=== PATIENT | male | born 1970 | race Caucasian/White ===

== ENCOUNTER 2017-10-20 18:03 | Emergency (ER) | payer MEDICARE, SELFPAY ==
[2017-10-20 18:09] VITALS: BP 169/84; PULSE 88; RESP 16; TEMP 36.9; O2SAT 96
--- NOTE | 2017-10-20 18:23 | ED.GENADUL_ITS ---
Disposition Clinical Impression: Chronic ulcer of leg, Lymphedema of right lower extremity Disposition: HOME Condition: Stable Instructions: Lymphedema (ED), Venous Insufficiency (GEN) Additional Instructions: Keep wound clean, dry and covered. Rest and elevate right lower extremity is much as possible. Keep your sugars under good control. Wash area with soap and water. If you develop any fever, increased pain, redness or swelling, start the antibiotics immediately. You should receive a call from care management regarding follow-up with wound care. Follow-up with your primary care doctor within the next week. Return to the emergency department with any worsening or new concerning symptoms. 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 He denies any worsening pain. He denies any acute worsening of edema and states this has been progressive over the past 2 months. He denies fever. Patient states his sugars have been at baseline around 250-300. He has multiple ulcers in various stages on the right lower extremity which appear consistent with likely resulting from his lymphedema/venous stasis. There is mild surrounding erythema of the lower leg. Vascular intact. As he denies any acute worsening of edema and denies pain and is already on Eliquis, I do not see any indication for repeat ultrasound. He is mainly concerned about the nuisance involved with the oozing. Patient was treated with doxycycline and Bactrim recently for right leg cellulitis. Considering his history, will give prescription for antibiotics in case of an early developing cellulitis. He states his 2 recent leg infections were worse than the current presentation and he states he feels his leg is not infected at this time. Patient was instructed to start antibiotics at any signs of increased pain, fever or swelling. Will arrange for care management to have wound care evaluate. Patient instructed to follow-up with the primary care doctor and return here if worse. History of Present Illness - General Chief complaint: Cellulitis Stated complaint: R LEG WEEPING/OPEN SORES Time Seen by Provider: 10/20/17 18:04 Source: patient Mode of arrival: ambulatory Limitations: no limitations - History of Present Illness Initial comments: Patient is a 47-year-old male with history of diabetes and left AKA due to septic joint status post left knee arthroplasty 3 with a history of chronic lymphedema in the right lower extremity with right leg ulcers for several months who presents for oozing from right ulcers for the past few days. Patient was also diagnosed with a DVT in his right lower extremity 1 month ago and is on Eliquis. He denies any pain in his right leg. He states the oozing from his legs is mainly a nuisance as he is trying to wear compression stockings but his wounds continues through this. He states the drainage is mainly clear. He denies known fever. He states he had cellulitis in the leg a few months ago for which he took Bactrim. He states that his leg has become progressively more swollen over the past few weeks. - Related Data ARIPiprazole [Abilify] 20 mg PO QPM 05/21/12 Vitamin D 2,000 unit PO HS 05/21/12 Simvastatin 20 mg PO HS #90 01/08/13 MetFORMIN CR [Glucophage Xr] 1,000 mg PO BID #360 08/18/13 Zolpidem Tartrate [Ambien] 10 mg PO HS #1 09/03/13 Cyanocobalamin (Vitamin B-12) [Vitamin B-12] 1,000 mcg PO DAILY 12/21/14 Venlafaxine HCl [Venlafaxine HCl ER] 300 mg PO HS #0 11/27/15 Naloxone HCl [Narcan Nasal [place]] 4 mg NS PRN #2 spray 01/03/17 ARIPiprazole [Abilify] 5 mg PO HS 04/16/17 ClonazePAM [KlonoPIN] 0.5 mg PO 04/16/17 Hydroxyzine Pamoate [Vistaril] 50 mg PO TID cap 04/16/17 LamoTRIgine [LaMICtal] 200 mg PO HS tab 04/16/17 Potassium Chloride 20 meq PO BID #180 04/16/17 Prazosin HCl 1 mg PO HS 04/18/17 Blood Sugar Diagnostic [Blood Glucose Test Strip] 1 each MC TID & PRN #400 strip 07/30/17 Lancets 1 ea MC TID #400 each 08/14/17 Apixaban [Eliquis] 5 mg PO BID 90 Days #180 tab-cap 09/08/17 Insulin Aspart [NovoLOG Flexpen] 40 units SC TID, WITH MEALS #3 box 09/24/17 Insulin Regular, Human [Humulin R U-500 Kwikpen] 600 unit SQ DAILY #45 pen 09/24 Silver Sulfadiazine 20 gm TP BID #1 bottle 09/24/17 Oxycodone HCl 10 mg PO q6 prn pain #112 tab-cap MDD 20mg 10/01/17 Diclofenac Sodium 4 gram TP QID PRN 30 Days #100 gram 10/08/17 Pregabalin [Lyrica] 150 mg PO TID #270 cap 10/16/17 Propranolol HCl 10 mg PO TID #90 tab-cap 10/16/17 Clindamycin [Cleocin] 450 mg PO TID 10 Days cap 10/20/17 Allergies Allergy/AdvReac Type Severity Reaction Status Date / Time quetiapine fumarate Allergy Severe Unverified 10/20/17 18:19 [From Seroquel] vancomycin Allergy Severe Anaphylaxsi Unverified 10/20/17 18:19 s venom-honey bee Allergy Severe anaphylacti Unverified 10/20/17 18:19 [bee venom (honey bee)] c carbamazepine AdvReac Severe psychosis,s Unverified 10/20/17 18:19 uicidal fluoxetine HCl [From Symbyax] AdvReac Severe jaundice Unverified 10/20/17 18:19 olanzapine [From Symbyax] AdvReac Severe jaundice Unverified 10/20/17 18:19 Review of Systems Constitutional: denies: chills, fever Eyes: denies: eye pain ENT: denies: ear pain, dental pain Respiratory: denies: cough, shortness of breath Cardiovascular: denies: chest pain, dyspnea on exertion Gastrointestinal: denies: abdominal pain, nausea, vomiting Genitourinary: denies: urgency, dysuria, frequency Musculoskeletal: denies: back pain Skin: lesions. denies: rash Neurological: denies: headache, weakness, numbness Past Medical History - Past Medical History Medical history: AMI (noted in hx, pt denies), diabetes (Insulin dependent ), GERD, hyperlipidemia, hypertension kidney stones, KAMARI Surgical history: other (L knee replacement with septic joint resulting in L AKA , L quad tendon rupture) Family history: no significant family history - Social History Smoking status: never smoker Alcohol use: none Drug use: none General Exam - General Limitations: no limitations General appearance: alert, in no apparent distress - Eye Eye exam: Present: EOMI - Respiratory Respiratory exam: Present: normal lung sounds bilaterally. Absent: respiratory distress, wheezes, rales, rhonchi, stridor - Cardiovascular Cardiovascular Exam: Present: regular rate, normal rhythm. Absent: bradycardia , tachycardia - GI/Abdominal GI/Abdominal exam: Present: soft, normal bowel sounds, other (Obese abdomen. Bulge noted in Center abdomen consistent with hernia but no abdominal wall defect palpated. No erythema, induration, crepitus or rigidity). Absent: distended, tenderness, guarding, rebound, rigid - Neurological Exam Neurological exam: Present: alert, oriented X3 - Psychiatric Psychiatric exam: Present: normal affect - Skin Skin exam: Present: warm, dry, intact Course Vital Signs - 24 hr 10/20/17 18:09 Temperature 98.4 F Pulse 88 Respiratory 16 Rate Blood Pressure 169/84 Pulse Oximetry 96
--- NOTE | 2017-10-21 08:58 | PDOC.ERCMPRO ---
Care Management Progress Note 10/21-Dr. Gomez requested assistance with a wound care f/u and PCP f/u this week for chronic ulcers. Currently Ricardo is in physical therapy with Leoncio Solo in [facility] and they do offer wound care. Currently Ricardo is not open to home health. Ricardo is on Medicare and is not homebound. Faxed referral to [facility] requesting PCP f/u and for them to reach out to Leoncio Solo for wound care.
--- NOTE | 2017-10-21 09:02 | CMPROGNOTE_ITS ---
Care Management Progress Note 10/21-Dr. Gomez requested assistance with a wound care f/u and PCP f/u this week for chronic ulcers. Currently Ricardo is in physical therapy with Leoncio Solo in [facility] and they do offer wound care. Currently Ricardo is not open to home health. Ricardo is on Medicare and is not homebound. Faxed referral to [facility] requesting PCP f/u and for them to reach out to Leoncio Solo for wound care.
== END 2017-10-20 19:42 | disposition home or self-care (01) ==
PROVIDERS: Emergency Provider Physician Assistant; PCP Student in an Organized Health Care Education/Training Program
DX: L97.211 Non-pressure chronic ulcer of right calf limited to breakdown of skin (principal); I89.0 Lymphedema, not elsewhere classified; Z89.612 Acquired absence of left leg above knee; I10 Essential (primary) hypertension; Z79.4 Long term (current) use of insulin; Z79.01 Long term (current) use of anticoagulants
CPT/HCPCS: 99283 ×2

== ENCOUNTER 2017-10-26 18:35 | Emergency (ER) | payer MEDICARE, SELFPAY ==
[2017-10-26 19:32] VITALS: BP 137/66; PULSE 84; RESP 20; TEMP 36.5; O2SAT 94; O2SAT 95
[2017-10-26 19:40] VITALS: O2SAT 93
--- NOTE | 2017-10-26 20:05 | ED.GENADUL ---
Disposition Clinical Impression: Lymphedema of right lower extremity Disposition: HOME Condition: Stable Instructions: Leg Edema (ED) Additional Instructions: follow up with your primary care provider this week if you have high fevers or severe worsening shortness of breath return to the emergency department Prescriptions: Furosemide [Lasix] 20 mg PO DAILY #14 tab Medical Decision Making - Medical Decision Making Pt here with continued right leg swelling despite conservative management. Given clear fluid coming from the leg feel he may benefit from low dose lasix. Will try this and have him f/u with pcp and also advised if no improvement when he follows up this week he should discuss ahving a dvt u/s with his pcp. Has no chest pain, clear lungs, no jvd so doubt chf at this time. - Differential Diagnosis lymphedema, dvt, anasarca History of Present Illness - General Chief complaint: Cellulitis Stated complaint: OPEN WOUNDS ON LEGS Time Seen by Provider: 10/26/17 19:59 Source: patient Mode of arrival: ambulatory Limitations: no limitations - History of Present Illness Initial comments: 47 yo male comes in with continued left lower leg swelling for over 3 months per patient. He denies fevers, chills, chest pain, states he has noticed some intermittent shortness of breath but denies chest pain or abdominal pain. HE was put on abx last week for possible right leg infection and has no significant erythema or redness on my exam. His entire right leg is swollen and has some clear edema seeping through. No crpeitus or severe pain, no calf pain. He states he has had an u/s for dvt in the past MD Complaint: right leg swelling Onset/Timin -: month(s) Location: lower extremity Radiation: non-radiation Consistency: constant Improves with: none Worsens with: none - Related Data ARIPiprazole [Abilify] 20 mg PO QPM 05/21/12 Vitamin D 2,000 unit PO HS 05/21/12 Simvastatin 20 mg PO HS #90 01/08/13 MetFORMIN CR [Glucophage Xr] 1,000 mg PO BID #360 08/18/13 Zolpidem Tartrate [Ambien] 10 mg PO HS #1 09/03/13 Cyanocobalamin (Vitamin B-12) [Vitamin B-12] 1,000 mcg PO DAILY 12/21/14 Venlafaxine HCl [Venlafaxine HCl ER] 300 mg PO HS #0 11/27/15 Naloxone HCl [Narcan Nasal [place]] 4 mg NS PRN #2 spray 01/03/17 ARIPiprazole [Abilify] 5 mg PO HS 04/16/17 ClonazePAM [KlonoPIN] 0.5 mg PO 04/16/17 Hydroxyzine Pamoate [Vistaril] 50 mg PO TID cap 04/16/17 LamoTRIgine [LaMICtal] 200 mg PO HS tab 04/16/17 Potassium Chloride 20 meq PO BID #180 04/16/17 Prazosin HCl 1 mg PO HS 04/18/17 Blood Sugar Diagnostic [Blood Glucose Test Strip] 1 each MC TID & PRN #400 strip 07/30/17 Lancets 1 ea MC TID #400 each 08/14/17 Apixaban [Eliquis] 5 mg PO BID 90 Days #180 tab-cap 09/08/17 Insulin Aspart [NovoLOG Flexpen] 40 units SC TID, WITH MEALS #3 box 09/24/17 Insulin Regular, Human [Humulin R U-500 Kwikpen] 600 unit SQ DAILY #45 pen 09/24/17 Silver Sulfadiazine 20 gm TP BID #1 bottle 09/24/17 Diclofenac Sodium 4 gram TP QID PRN 30 Days #100 gram 10/08/17 Pregabalin [Lyrica] 150 mg PO TID #270 cap 10/16/17 Propranolol HCl 10 mg PO TID #90 tab-cap 10/16/17 Clindamycin [Cleocin] 450 mg PO TID 10 Days cap 10/20/17 Oxycodone HCl 10 mg PO q6 prn pain #30 tab-cap MDD 20mg 10/23/17 Furosemide [Lasix] 20 mg PO DAILY #14 tab 10/26/17 Allergies Allergy/AdvReac Type Severity Reaction Status Date / Time quetiapine fumarate Allergy Severe Unverified 10/26/17 19:38 [From Seroquel] vancomycin Allergy Severe Anaphylaxsi Unverified 10/26/17 19:38 s venom-honey bee Allergy Severe anaphylacti Unverified 10/26/17 19:38 [bee venom (honey bee)] c carbamazepine AdvReac Severe psychosis,s Unverified 10/26/17 19:38 uicidal fluoxetine HCl [From Symbyax] AdvReac Severe jaundice Unverified 10/26/17 19:38 olanzapine [From Symbyax] AdvReac Severe jaundice Unverified 10/26/17 19:38 Review of Systems Constitutional: denies: fever Respiratory: denies: cough Cardiovascular: denies: chest pain Gastrointestinal: denies: nausea, vomiting Musculoskeletal: denies: back pain Comment: All other systems reviewed and negative Past Medical History - Past Medical History Medical history: AMI (noted in hx, pt denies), diabetes (Insulin dependent ), GERD, hyperlipidemia, hypertension kidney stones, KAMARI Surgical history: other (L knee replacement with septic joint resulting in L AKA, L quad tendon rupture) Family history: no significant family history - Social History Alcohol use: none Drug use: none General Exam - General Limitations: no limitations General appearance: alert, in no apparent distress - Head Head exam: Present: atraumatic - Eye Eye exam: Present: normal apperance - ENT ENT exam: Present: mucous membranes moist - Neck Neck exam: Present: normal inspection - Respiratory Respiratory exam: Present: normal lung sounds bilaterally. Absent: respiratory distress - Cardiovascular Cardiovascular Exam: Present: regular rate - Extremities Exam Extremities exam: Present: pedal edema. Absent: calf tenderness - Neurological Exam Neurological exam: Present: alert, oriented X3 - Psychiatric Psychiatric exam: Present: normal affect - Skin Skin exam: Present: warm Course Vital Signs - 24 hr 10/26/17 19:32 Temperature 97.7 F Pulse 84 Respiratory 20 Rate Blood Pressure 137/66 Pulse Oximetry 94 L
[2017-10-26] MEDS: Furosemide 20 MG TAB PO (20:18)
[2017-10-26 20:28] VITALS: BP 137/66; PULSE 84; RESP 20; O2SAT 93
== END 2017-10-26 20:35 | disposition home or self-care (01) ==
PROVIDERS: Emergency Provider Emergency Medicine; PCP Student in an Organized Health Care Education/Training Program
DX: I89.0 Lymphedema, not elsewhere classified (principal); I10 Essential (primary) hypertension; E11.9 Type 2 diabetes mellitus without complications; Z79.4 Long term (current) use of insulin
CPT/HCPCS: 99283 ×2

== ENCOUNTER 2017-11-11 15:00 | Outpatient (RCR) | payer MEDICARE, SELFPAY ==
--- NOTE | 2017-10-16 15:31 | PTTR_ITS ---
DATE: 10/16/17 SUBJECTIVE: Pt reports that he was broken after last session; he had a lot of pain in his back which is somewhat better today. He feels as though getting flat onto the table caused his back to stiffen up and become exceedingly painful. OBJECTIVE: Therapeutic procedures ([id number]). * X See flow sheet: Continued pt's UE strengthening program. Pt is still uncomfortable; program modified to tolerance with reduced reps on several exercises. Modified core strengthening work so that pt stays in w/c rather than moving to table. * X Provided skilled instruction in proper exercise performance. * X Provided skilled manual cues to facilitate proper muscle recruitment and/ or movement pattern. * X Other: Pt ended session with 8 minutes cardiovascular conditioning on UBE under labor trainer supervision. Direct treatment time: 28 minutes Total treatment time: 36 minutes
--- NOTE | 2017-10-21 10:18 | NT_ITS ---
10/21/17 Cancelled due to lymphedema issues. Samantha Olguin, ENVIRONMENTAL TEST TECHNICIAN
--- NOTE | 2017-11-07 12:48 | IE_ITS ---
Date: November 07, 2017 Referring: Itzel Perkins DO M.D. Diagnosis: Lymphedema of RLE P.T. Diagnosis: Stage II secondary lymphedema RLE in setting of multiple wounds and staph infection, currently on antibiotics SUBJECTIVE: History of Present Illness: Pt is a 47 yr male presenting to the clinic today with R LE lymphedema that has gotten worse in the last few months. Pt has a complicated medical history, with history of diabetes mellitus that resolved in L LE above-knee amputation 12/23/[address] Millan. He did receive a prosthetic for his L LE, but is no longer able to use it due to edema in the L stump and increased weight gain, along with increased R LE lymphedema and staph infection with 6 small wounds on his R lower leg that are non-healing. Pt has an appt. with a waste/materials exchange specialist next week for wound assessment and treatment recommendations. He is referred to P.T at this time for continued lymphedema management. 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 Pt's goals for therapy intervention are re-education regarding lymphedema management and support in implementing lymphedema management plan to reduce RLE swelling to allow him to wear his garments and heal the wounds in his legs. Pain Ratin /10 Pain Location: R LE due to diabetic neuropathy and diminished sensation due to diabetes. He is currently taking oxycodone, which helps reduce his leg pain. Prior Level of Function: Prior to AKA, he was mobile and ambulatory. Since AKA , he has had steady decline. He was able to use a prosthetic for some time, but is currently wheelchair bound with limited mobility. Current Level of Function: Wheelchair dependent. Performs stand pivot transfers from bed to chair, bed to commode. Was performing independent upper body strengthening program here at [facility] with Leoncio Yi DPT and plans to continue his independent strengthening program after this visit. Current functional limitations: Difficulty putting on socks or shoes, performing activities around the home, getting in and out of a vehicle, standing or sitting for 1 hr. Difficulty wearing velcro 3 piece R LE compression garment due to the fact that they no longer fit, difficulty wearing Heather boots for wounds due to wound leakage. Previous Treatment: Received some home health lymphedema MLD, which did improve his RLE edema, but has not had that x 4-5 months. Social: . Lives with his in a house, 3 steps to enter with railing. He does have a ramp in the garage at this point. Self propels independently in a manual wheelchair. Performs stand pivot transfers independently with and without FWW. He has a commode performs. Performs sponge baths. 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 Millan), R heel spur excision by Dr. Ruffin, R medial thigh cyst removal, R RC tendinopathy, chronic back pain , sleep apnea, bipolar depression, hyperlipidemia, hypertension, ED, GERD, nephrolithiasis, recurrent ventral hernia, staphylococcal arthritis R knee. Falls in the last year: __X__ No Reported hospitalizations in the last year - __X__ Yes - Dates of admission/ reason: Reports he has been to the emergency department 4-5x for his RLE wound. He has not been hospitalized. States he did have cellulitis of the R LE in June 2017 and was positive for DVT at that time. Currently is not being treated for cellulitis. Medications: Pt has an extensive medication list. See medical records for details. Currently taking oxycodone for pain relief. Quality of Life: __X__ Good Standardized Measures: Lower Extremity Functional Score: ( LEFS) __81% disability__ OBJECTIVE: Posture: Pt sitting in wheelchair with slightly flexed shoulders and slumped posture. Maintains good sitting balance in wheelchair and on mat and table without assistance. Gait: Performs stand pivot transfer independently from wheelchair to mat and table and back to wheelchair with R diabetic shoe in place. Observation: RLE skin is pink from above the knee to the toes. Moderate pink. There are 6 small wounds throughout RLE from the knee to the foot. Lateral wounds: #1: is 14 cm. up leg from lateral malleolus measures 2 cm. x 2 cm. This is covered with silver based cream and 4x4 dressing. Pt reports this is his primary wound that weeps and prevents him from wearing his Heather boots or velcro compression garments because he does not want to ruin them and have to buy new garments. #2: 22 cm up leg from lateral malleolus. Measures 1 cm. x 2 cm. #3: 30 cm up leg from lateral malleolus measures 4.5 x 5 cm. #4: Anterior yee 27 cm. from ankle joint. Measures 2x2 cm. L LE: L AKA. has healed surgical scar. Does have a scabbed over blister scar. Pt reports that he received a blister 2 months ago; this is almost healed. R LE: There is callus around the R medial posterior ankle. Fibrosis and firmness noted through R medial and posterior calf. Pitting edema in dorsum of foot, calf and R thigh 2+. R LE is red, hard and tender to palpation throughout. Edema: Circumferential measurements: RLE Mid foot 27.5 cm 10 34 cm 20 34.5 cm 30 48 cm 40 57.5 cm 50 52 cm 60 54.5 cm 70 65 cm L AKA measured at 80 cm on thigh is 65 cm. ROM: L LE: L hip WNL RLE: Hip WNL, slight tight at end ranges due to lymphedema RLE R knee WNL -5 degrees flexion at end range due to lymphedema R ankle WNL Strength: R LE Hip flexion 4/5 Quadricep 4/5 Hamstring 4/5 Dorsiflexion, plantar flexion 5/5 Neurological: Pt intact to light touch and proprioception throughout L AKA and RLE with pain, tenderness and burning throughout RLE from knee to foot and slightly diminished sensation to light touch at base of foot.Motor control and kinesthetic awareness are intact. Treatment: Initial Evaluation and assessment of his functional abilities.IE: [id number] Patient Education: Pt was issued lymphedema educational packet. Discussed with pt anatomy of lymphatic system and lymphatic flow.Pt was educated regarding management of lymphedema including Complete Decongestive Therapy (CDT ) consisting of:: 1. Skin care and hygiene: Pt primary issues at this time are non-healing wounds on his RLE, putting him at risk for infection and preventing him from receiving manual lymphatic drainage to reduce limb size. Pt does have an appt. with a waste/materials exchange specialist next week for recommendations on treatment for wounds and bandaging for wounds with goal to be able to wear velcro compression garments and Heather boots for wound healing. Pt will report back to PT regarding waste/materials exchange specialist treatment recommendations for RLE and we will begin lymphedema management after skin care plan is in place. Pt is also being treated for Staph infection in his RLE and currently on antibiotics. This also needs to be completed in order to be able to progress with lymphedema treatment. 2. Manual Lymphatic Drainage: Pt was receiving MLD in home setting, which had reduced his limb size. However, he has not received MLD x 4 months and his limb has increased in size since that time. He was not instructed in self MLD techniques. Will begin instruction regarding self MLD techniques for pt and to perform daily in home setting. MLD will be limited by wounds on LE's; these need to be healed for him to be able to progress to lymphedema management. 3. Compression: Pt has purchased velcro foot, calf and thigh pieces for compression garments. They do not fit him at this time due to his limb size. Pt requires wound care and MLD to reduce limb size in order to fit back into his compression garments. Pt is not able to afford a new set of compression garments at this time as his garments are private pay when has Medicare. The best plan would be to treat skin and perform MLD to reduce limb size so he could fit into his current garments. 4. Exercise and elevation: Pt has been instructed in LE exercises previously and has an exercise handout for this at home. He can initiate this daily. Pt states he does elevate his RLE. Pt instructed to elevate RLE above hip for 30 min/day. Pt verbalized understanding of all instructions. Will schedule next appt. after visit to waste/materials exchange specialist so we know how to proceed. Direct treatment time: 60 min Total treatment time: 60 min ASSESSMENT: Patient is a 47-year-old male, referred for P.T services with the diagnosis of lymphedema RLE. Patient presents with clinical signs and symptoms consistent with stage II R secondary lymphedema in setting of diabetes with peripheral neuropathy, 6 wounds to RLE with Staph infection in one, pitting edema to RLE with all risk factors of lymphedema including sedentary lifestyle, obesity, dependent limb position due to wheelchair bound function. Pt is at high risk for cellulitis and infection of the RLE and high risk for amputation of the RLE if pt does not perform management of lymphedema and diabetes. Patient is assessed as: _X__ High 89508 complexity, based on the following: History: Complex medical history including diabetes mellitus, obesity, history of cellulitis, DVT, Staph infection to the RLE and personal limitations of functional mobility being L AKA and wheelchair bound. Examination: Current area of treatment is RLE, but would benefit from overall conditioning and strengthening, which he will perform independent program here in the gym for. Presentation:Evolving Decision-Making: High complexity 81 % Disability based on LEFS __X__ Patient requires skilled PT intervention to remediate the above functional limitations to return to: __X__ Improve Quality of Life G-Codes Patient's primary functional limitation is in the category of: __X_ Other Physical/Occupational Therapy primary functional limitation: GP- [id number] Projected goal: __X__ Other Physical/Occupational Therapy primary functional limitation: [id number] modifier to be utilized as justified by above documentation for necessity of continued Physical Therapy intervention to attend to functional deficits which have not been fully remediated as they approach their Medicare cap. GOALS STG: __2__ weeks. 1. Pt will be independent with skin care treatment plan as directed by waste/materials exchange specialist. 2. Pt will be independent with self MLD techniques for R secondary stage II lymphedema. 3. /caregiver will be independent in assisting pt with self MLD techniques. LTG: __4__ weeks. 1. RLE limb size will reduce by 1-2 cm. circumferential measurements. 2. Pt will be independent with RLE exercise program for lymphedema. 3. Pt will be independent with elevation of RLE 30 min/day. 4. Pt will be independent with lymphedema management program for RLE. PLAN: Patient to be seen 2 x per week, for 4 weeks, adjusting frequency of visits per patient symptoms and response to treatment. Treatment to include: X Manual therapy - [id number]: instruction in self MLD and instruction for caregiver in assisting RLE drainage, as well as MLD treatments here in the clinic. X Therapeutic exercise - [id number] RLE lymphedema to continue with general body strengthening and conditioning as outlined by prior PT Leoncio Yi, PAO. X Self care training [id number]: for lymphedema management program. Thank you for this referral. Please do not hesitate to contact me with any questions or concerns regarding this patient's plan of care. Chloe Vega PT. CLT CF/fw MEDICAREDr. Perkins, please sign below and return to PT if you agree with above POC. Itzel Perkins, DO Date
--- NOTE | 2017-11-11 15:00 | PTTR_ITS ---
DATE: 11/11/17 SUBJECTIVE: Ricardo reporting he's doing well. he continues to have lymphedema and swelling in the right LE. He's seeing the adaptive physical education specialist tomorrow in [place], but he does want to resume his exercises here in the PT clinic. OBJECTIVE: Therapeutic procedures ([id number]).Begin instruction in MSP program for UE strengthening. He understands he will need assistance setting up equipment, especially on the nautilus machines. I do cut back his weights and reps today as it's been about 2 weeks since he's completed his exercise program. He will come in 1-2 days a week to complete his MSP. See flow sheet for all activities performed. Direct treatment time: 30 min. Total treatment time: 30 min. LB/kf
== END 2017-11-14 23:59 | disposition home or self-care (01) ==
LOC: PT 15:00
PROVIDERS: PCP Student in an Organized Health Care Education/Training Program; Referring Provider Student in an Organized Health Care Education/Training Program; Visit Provider Student in an Organized Health Care Education/Training Program
DX: I89.0 Lymphedema, not elsewhere classified (principal)
CPT/HCPCS: 97110; 97163

== ENCOUNTER 2018-04-16 12:09 | Outpatient (CLI) | payer MEDICARE, SELFPAY ==
--- NOTE | 2018-04-16 12:06 | DI.RAD_ITS ---
SYMPTOM/DIAGNOSIS: BILAT SHOULDER PAIN RIGHT SHOULDER: Two views were performed. There is mild spurring at the AC joint and inferior glenoid. The humeral head is normally position. No tendon or joint space calcifications are visible. IMPRESSION: Mild degenerative changes. LEFT SHOULDER: There are mild degenerative changes of the glenohumeral joint and AC joint. The humeral head is normally positioned. No tendon or joint space calcifications are seen. IMPRESSION: Minimal degenerative changes.
== END 2018-04-16 12:29 ==
PROVIDERS: PCP Student in an Organized Health Care Education/Training Program; Referring Provider Student in an Organized Health Care Education/Training Program; Visit Provider Orthopaedic Surgery
DX: M25.511 Pain in right shoulder (principal); M25.512 Pain in left shoulder; M75.81 Other shoulder lesions, right shoulder; M75.82 Other shoulder lesions, left shoulder; M17.11 Unilateral primary osteoarthritis, right knee; E11.8 Type 2 diabetes mellitus with unspecified complications; Z79.4 Long term (current) use of insulin
CPT/HCPCS: 20610; 99213; 99214; 73030; J1040

== ENCOUNTER 2018-05-01 14:43 | Outpatient (CLI) | payer MEDICARE, SELFPAY ==
[2018-05-01 15:55] LABS: Anion Gap 8.3 mmol/L (3-11); BUN 19 mg/dL (7-18); CO2 28.7 mmol/L (21.0-32.0); CREATININE 1.01 mg/dL (0.70-1.30); Calcium 8.6 mg/dL (8.5-10.1); Chloride 101 mmol/L (98-107); Glucose 239 mg/dL (70-100); Potassium 4.1 mmol/L (3.5-5.1); Sodium 138 mmol/L (136-145)
== END 2018-05-01 15:03 ==
PROVIDERS: PCP Student in an Organized Health Care Education/Training Program; Visit Provider Student in an Organized Health Care Education/Training Program
DX: E11.8 Type 2 diabetes mellitus with unspecified complications (principal); Z86.39 Personal history of other endocrine, nutritional and metabolic disease
CPT/HCPCS: 36415; 80048

== ENCOUNTER 2018-05-11 10:52 | Outpatient (REF) | payer MEDICARE, SELFPAY ==
[2018-05-15 11:50] LABS: 6-monoacetylmorphine Not Detected ng/mL (Cutoff: 25); Amphetamines Negative ng/mL (Cutoff: 500); Barbiturates Negative ng/mL (Cutoff: 200); Benzodiazepines Negative ng/mL (Cutoff: 100); Buprenorphine Not Detected ng/mL (Cutoff: 5); Cocaine Negative ng/mL (Cutoff: 150); Codeine Not Detected ng/mL (Cutoff: 25); Comment Normal; Creatinine, U 29.2 mg/dL; Dihydrocodeine Not Detected ng/mL (Cutoff: 25); EDDP Not Detected ng/mL (Cutoff: 25); Fentanyl Not Detected ng/mL (Cutoff: 2); Hydrocodone Not Detected ng/mL (Cutoff: 25); Hydromorphone Not Detected ng/mL (Cutoff: 25); Hydromorphone-3-beta-glucuroni Not Detected ng/mL (Cutoff: 100); Meperidine Not Detected ng/mL (Cutoff: 25); Methadone Not Detected ng/mL (Cutoff: 25); Morphine Not Detected ng/mL (Cutoff: 25); N-desmethyltapentadol Not Detected ng/mL (Cutoff: 50); Naloxone Not Detected ng/mL (Cutoff: 25); Norbuprenorphine Not Detected ng/mL (Cutoff: 5); Norfentanyl Not Detected ng/mL (Cutoff: 2); Norhydrocodone Not Detected ng/mL (Cutoff: 25); Normeperidine Not Detected ng/mL (Cutoff: 25); Noroxycodone Not Detected ng/mL (Cutoff: 25); Noroxymorphone Not Detected ng/mL (Cutoff: 25); O-desmethyltramadol Not Detected ng/mL (Cutoff: 25); Phencyclidine Negative ng/mL (Cutoff: 25); Propoxyphene Not Detected ng/mL (Cutoff: 25); Specific Gravity 1.004; Tapentadol Not Detected ng/mL (Cutoff: 25); Tetrahydrocannabinol Negative ng/mL (Cutoff: 50); Tramadol Not Detected ng/mL (Cutoff: 25)
== END 2018-05-11 11:12 ==
LOC: LBN 10:52
PROVIDERS: PCP Student in an Organized Health Care Education/Training Program; Visit Provider Nurse Practitioner Family
DX: Z79.891 Long term (current) use of opiate analgesic (principal); G89.29 Other chronic pain
CPT/HCPCS: 80307; 80364

== ENCOUNTER 2018-07-02 15:47 | Outpatient (REF) | payer MEDICARE, SELFPAY ==
[2018-07-06 16:25] LABS: 6-monoacetylmorphine Not Detected ng/mL (Cutoff: 25); Amphetamines Negative ng/mL (Cutoff: 500); Barbiturates Negative ng/mL (Cutoff: 200); Benzodiazepines Negative ng/mL (Cutoff: 100); Buprenorphine Not Detected ng/mL (Cutoff: 5); Cocaine Negative ng/mL (Cutoff: 150); Codeine Not Detected ng/mL (Cutoff: 25); Comment Normal; Creatinine, U 50.5 mg/dL; Dihydrocodeine Not Detected ng/mL (Cutoff: 25); EDDP Not Detected ng/mL (Cutoff: 25); Fentanyl Not Detected ng/mL (Cutoff: 2); Hydrocodone Not Detected ng/mL (Cutoff: 25); Hydromorphone Not Detected ng/mL (Cutoff: 25); Hydromorphone-3-beta-glucuroni Not Detected ng/mL (Cutoff: 100); Meperidine Not Detected ng/mL (Cutoff: 25); Methadone Not Detected ng/mL (Cutoff: 25); Morphine Not Detected ng/mL (Cutoff: 25); N-desmethyltapentadol Not Detected ng/mL (Cutoff: 50); Naloxone Not Detected ng/mL (Cutoff: 25); Norbuprenorphine Not Detected ng/mL (Cutoff: 5); Norfentanyl Not Detected ng/mL (Cutoff: 2); Norhydrocodone Not Detected ng/mL (Cutoff: 25); Normeperidine Not Detected ng/mL (Cutoff: 25); Noroxycodone Present ng/mL (Cutoff: 25); Noroxymorphone Present ng/mL (Cutoff: 25); O-desmethyltramadol Not Detected ng/mL (Cutoff: 25); Phencyclidine Negative ng/mL (Cutoff: 25); Propoxyphene Not Detected ng/mL (Cutoff: 25); Specific Gravity 1.006; Tapentadol Not Detected ng/mL (Cutoff: 25); Tetrahydrocannabinol Negative ng/mL (Cutoff: 50); Tramadol Not Detected ng/mL (Cutoff: 25); pH 6.9
== END 2018-07-02 16:07 ==
LOC: LBN 15:47
PROVIDERS: PCP Student in an Organized Health Care Education/Training Program; Visit Provider Nurse Practitioner Family
DX: M54.5 Low back pain (principal)
CPT/HCPCS: 80307; 80364

== ENCOUNTER 2018-08-18 18:00 | Inpatient (IN) | payer MEDICARE, SELFPAY ==
[2018-08-18 18:11] VITALS: BP 160/77; PULSE 118; RESP 19; TEMP 37.2; O2SAT 96
--- NOTE | 2018-08-18 18:29 | W.ED.GENAD ---
Discharge Plan Disposition Patient Disposition: [facility] INPATIENT Condition: Improving Discharge Details Chief Complaint: Diabetes Clinical Impression: Vomiting, Dehydration, Ketosis, Acute UTI Primary Care Provider: Itzel Perkins ED Provider: Ashwin Yarbrough Home Meds and New Rx's Prescriptions: No Action diclofenac sodium 1 % gel 4 gm TP QID Qty: 400 RF: 3 Novolog Flexpen U-100 Insulin 100 unit/mL insulin pen 50 unit SC .noon RF: 0 cephalexin 500 mg tablet 500 mg PO Q12H Qty: 14 RF: 0 oxycodone 10 mg tablet 10 mg PO TID MDD 3 tablets/day PRN (Reason: pain) 28 Days Qty: 84 RF: 0 30G Safety Needle See Rx Instructions .ROUTE .COMPLEX MDD 6 Qty: 200 RF: 6 pen needle, diabetic, safety 30 gauge x 3/16 needle .ROUTE .MEDSUPPLY Qty: 200 RF: 6 wheelchair device .ROUTE .MEDSUPPLY Qty: 1 RF: 0 naloxone 4 mg/actuation spray,non-aerosol 1 spray FRANCO ONCE PRN (Reason: opioid overdose) Qty: 2 RF: 0 aripiprazole [Abilify] 30 mg tablet 30 mg PO DAILY RF: 0 lamotrigine [Lamictal XR] 300 mg tablet extended release 24hr 300 mg PO DAILY RF: 0 Blood Glucose Test strip 1 ea Miscellaneous TID & PRN Qty: 400 RF: 12 zolpidem [Ambien] 10 MG tablet 10 mg PO HS Qty: 1 RF: 0 cyanocobalamin (vitamin B-12) [Vitamin B-12] 1,000 MCG tablet 1,000 mcg PO DAILY RF: 0 clonazepam 0.5 MG tablet 0.5 mg PO RF: 0 lancets 1 EACH misc 1 ea Miscellaneous TID Qty: 400 RF: 12 silver sulfadiazine 20 GM cream 20 gm Topical BID Qty: 1 RF: 1 prazosin 1 mg capsule 2 mg PO HS RF: 0 semaglutide 1 mg/0.75 mL (2 mg/1.5 mL) pen injector 1 mg SC QWEEK Qty: 3 RF: 3 simvastatin 20 mg tablet 20 mg PO HS Qty: 90 RF: 3 Glucagon Emergency Kit (human) 1 mg recon soln 1 mg subcut ONCE Qty: 1 RF: 1 Lyrica 150 mg capsule 150 mg PO TID Qty: 270 RF: 1 Novolog U-100 Insulin aspart 100 unit/mL solution 76 unit SC QACBREAK Qty: 30 RF: 0 V-GO 40 device .ROUTE .MEDSUPPLY Qty: 30 RF: 0 potassium chloride 20 mEq tablet extended release 20 meq PO BID Qty: 180 RF: 1 propranolol 10 mg tablet 10 mg PO TID Qty: 270 RF: 3 hydroxyzine pamoate [Vistaril] 50 mg capsule 50 mg PO TID Qty: 90 RF: 0 cholecalciferol (vitamin D3) 1,000 UNITS tablet 2,000 unit PO HS RF: 0 venlafaxine 150 MG capsule,extended release 24hr 300 mg PO HS Qty: 0 RF: 0 Humulin R U-500 (Conc) Kwikpen 500 unit/mL (3 mL) insulin pen 200 unit subcut TID RF: 0 Medical Decision Making This is a 47-year-old male with past medical history of type 2 diabetes who takes 200 units 3 times daily of insulin U5 100 200 units 3 times daily, who presents with 3 to 4 days of vomiting, diarrhea, fever, chills, and notable feelings of malaise. He went to see urgent care today and they recommended that he come in for further evaluation. Exam demonstrates a notably dehydrated appearing male, who is tachycardic. Abdomen is nontender nondistended. Bowel sounds are present. No history of GI surgeries, and I doubt obstruction. I suspect that the patient most likely has a combination of HH NK or DKA, in combination with a viral GI bug which is causing worsening of his symptoms. Additionally he does have dysuria, mild burning with urination, we will evaluate for urinary tract infection. 8:17 PM Urinalysis shows evidence of UTI. We will start 2 g of Rocephin, white count normal, no bandemia or left shift. Laboratory work-up demonstrates moderate acidosis at 7.18, with a bicarb of 12-13. Glucose levels are only slightly elevated at 230. Lactate is normal. Renal function stable. Patient is feeling slightly improved with fluids, we are on a liter 3 at this point. I do feel that there is a notable component of profound dehydration. His acidosis may be from DKA, but his clinical picture is atypical in conjunction with his history of type 2 diabetes specifically. This also may be profound starvation ketoacidosis as the cause of his symptoms. I did contact Dr. Lange and discussed the case with him. They are shared decision making process we have agreed to hold off on insulin infusion, and get a repeat set of electrolytes. He continues to demonstrate a gap, we will start insulin. Otherwise we will continue to rehydrate. He continues to demonstrate no abdominal pain or tenderness whatsoever. Diagnosis urinary tract infection, nausea and vomiting, acidosis with ketosis, potentially starvation ketosis. I have extensively reviewed the treatment plan with the patient. I have addressed all patient concerns at this time. I have also discussed the plan with the admitting physician and they agree with the current assessment and plan and have agreed to assume responsibility for the patient. All parties demonstrate verbal understanding and agreement with our assessment and plan at this time. EKG 18: 26 Rate 114, MI 112, QTc 482, QRS 104, sinus tachycardia, MI slightly shortened, no evidence of delta wave. No significant ST elevations or depressions or Q waves. No T wave inversions. HPI General Date/Time Provider Initiated Documentation: 08/18/18 18:13. HPI Narrative: This is a 47-year-old male with past medical history of type 2 diabetes, history of blood clot in the past after surgery not on blood thinners, hypertension, who presents today for evaluation of nausea vomiting and diarrhea for the last 3 to 4 days, he has had a mild fever at home. He denies any recent antibiotic use. He denies any other sick contacts. He is a type II diabetic and only takes insulin, Humulin R U-500 200 units 3 times daily. He denies any abdominal pain, chest pain, pleuritic chest pain, chest heaviness or shortness of breath. He denies any hematochezia, melena, acholic stool, or hematemesis. He also admits to mild dysuria and increase in urinary frequency. He denies any significant hematuria. He denies any flank pain. He denies any other complaints at this time. No other modifying factors. Related Data Home Medications Medication Instructions Recorded Confirmed cholecalciferol (vitamin D3) 2,000 unit PO HS 05/21/12 08/18/18 zolpidem [Ambien] 10 mg PO HS #1 09/03/13 08/18/18 cyanocobalamin (vitamin B-12) 1,000 mcg PO DAILY 10/07/15 06/04/19 [Vitamin B-12] venlafaxine 300 mg PO HS #0 11/27/15 08/18/18 clonazepam 0.5 mg PO 04/16/17 08/05/18 lancets #400 ea 08/14/17 08/05/18 silver sulfadiazine 20 gm TOPICAL BID #1 bottle 10/31/17 08/18/18 diclofenac 1 % topical gel 4 gm TP QID #400 gm 12/11/17 08/18/18 prazosin 1 mg capsule 2 mg PO HS cap 12/11/17 08/18/18 wheelchair #1 each 12/26/17 08/05/18 30G Safety Needle See Rx Instructions .ROUTE 01/14/18 08/05/18 .COMPLEX #200 unit MDD 6 pen needle, diabetic, safety 30 #200 each 01/14/18 08/05/18 gauge x 3/16 naloxone 4 mg/actuation nasal spray 1 spray FRANCO ONCE PRN #2 each 01/15/18 08/18/18 semaglutide 1 mg/dose (2 mg/1.5 1 mg SC QWEEK #3 ml 03/12/18 08/18/18 mL) subcutaneous pen injector simvastatin 20 mg tablet 20 mg PO HS #90 tab 03/19/18 08/18/18 insulin aspart U- 100 100 unit/mL 50 unit SC .noon ml 04/01/18 08/18/18 subcutaneous pen aripiprazole 30 mg tablet 30 mg PO DAILY 04/15/18 08/18/18 blood sugar diagnostic [Blood #400 strip 04/15/18 08/05/18 Glucose Test] lamotrigine ER 300 mg 300 mg PO DAILY 04/15/18 08/18/18 tablet,extended release 24 hr glucagon (human recombinant) 1 mg 1 mg SUBCUT ONCE #1 each 04/19/18 08/18/18 solution for injection pregabalin 150 mg capsule 150 mg PO TID #270 cap 04/23/18 08/18/18 insulin aspart U- 100 100 unit/mL 76 unit SC QACBREAK #30 ml 06/05/18 08/18/18 subcutaneous solution subcutaneous insulin delivery #30 each 06/05/18 08/05/18 device, 40 unit potassium chloride ER 20 mEq 20 meq PO BID #180 tab 06/11/18 08/18/18 tablet,extended release cephalexin 500 mg tablet 500 mg PO Q12H #14 tab 06/24/18 08/18/18 propranolol 10 mg tablet 10 mg PO TID #270 tab-cap 07/08/18 08/18/18 hydroxyzine pamoate 50 mg capsule 50 mg PO TID #90 cap 07/15/18 08/18/18 oxycodone 10 mg tablet 10 mg PO TID PRN 28 Days #84 tab 08/05/18 08/18/18 MDD 3 tablets/day Humulin R U-500 (Conc) Kwikpen 200 unit SUBCUT TID 08/18/18 08/18/18 Previous Rx's Medication Instructions Recorded venlafaxine 300 mg PO HS #0 11/27/15 lancets #400 ea 08/14/17 silver sulfadiazine 20 gm TOPICAL BID #1 bottle 10/31/17 diclofenac 1 % topical gel 4 gm TP QID #400 gm 12/11/17 wheelchair #1 each 12/26/17 30G Safety Needle See Rx Instructions .ROUTE 01/14/18 .COMPLEX #200 unit MDD 6 pen needle, diabetic, safety 30 #200 each 01/14/18 gauge x 3/16 naloxone 4 mg/actuation nasal spray 1 spray FRANCO ONCE PRN #2 each 01/15/18 semaglutide 1 mg/dose (2 mg/1.5 1 mg SC QWEEK #3 ml 03/12/18 mL) subcutaneous pen injector simvastatin 20 mg tablet 20 mg PO HS #90 tab 03/19/18 blood sugar diagnostic [Blood #400 strip 04/15/18 Glucose Test] glucagon (human recombinant) 1 mg 1 mg SUBCUT ONCE #1 each 04/19/18 solution for injection pregabalin 150 mg capsule 150 mg PO TID #270 cap 04/23/18 insulin aspart U- 100 100 unit/mL 76 unit SC QACBREAK #30 ml 06/05/18 subcutaneous solution subcutaneous insulin delivery #30 each 06/05/18 device, 40 unit potassium chloride ER 20 mEq 20 meq PO BID #180 tab 06/11/18 tablet,extended release cephalexin 500 mg tablet 500 mg PO Q12H #14 tab 06/24/18 propranolol 10 mg tablet 10 mg PO TID #270 tab-cap 07/08/18 hydroxyzine pamoate 50 mg capsule 50 mg PO TID #90 cap 07/15/18 oxycodone 10 mg tablet 10 mg PO TID PRN 28 Days #84 tab 08/05/18 MDD 3 tablets/day Allergies Allergy/AdvReac Type Severity Reaction Status Date / Time quetiapine fumarate Allergy Severe suicidal Verified 08/18/18 18:17 [From Seroquel] vancomycin Allergy Severe Anaphylaxsi Verified 08/18/18 18:17 s venom-honey bee Allergy Severe anaphylacti Verified 08/18/18 18:17 [bee venom (honey bee)] c carbamazepine AdvReac Severe psychosis,s Verified 08/18/18 18:17 uicidal fluoxetine HCl [From Symbyax] AdvReac Severe jaundice Verified 08/18/18 18:17 olanzapine [From Symbyax] AdvReac Severe jaundice Verified 08/18/18 18:17 General Stated Complaint: Diabetes ADVONTE: 3 Review of Systems Review of Systems All systems reviewed & are unremarkable except as noted in HPI and below PFSH Social History Smoking/Tobacco Use Status: Never Alcohol Intake: never Drug use: Never Substance use type: does not use Household members: spouse Housing: house What is your relationship status?: Panel score (0-1 are the most socially isolated patients): 1 What type of physical activity do you participate in: none Working smoke detector in home: Yes Fire extinguisher in home: Yes Carbon monox detector in home: Yes Do you feel safe at home: Yes Do you feel safe in your relationship?: Yes Exam Narrative Exam Narrative: 1.Const: Well-nourished, Well-developed, appearing stated age 2.Eyes: PERRL, no conjunctival injection, and symmetrical lids. 3.ENT: Atraumatic external nose and ears. Dry MM. Neck: Symmetric, trachea midline, No thyromegaly. 4.CVS: +S1/S2, No murmurs or gallops. Peripheral pulses 2+ and equal in all extremities. Brisk capillary refill in all extremities. 5.RESP: Unlabored respiratory effort. Clear to auscultation bilaterally. No wheezes rales or rhonchi 6.GI: Soft, Nontender/Nondistended, No hepatosplenomegaly. No guarding or rebound. 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 No rashes or lesions. 9.Neuro: twx operator II-XII grossly intact. Sensation grossly intact, no focal neurologic deficits. 10.Psych: (AAO) x3. Appropriate mood and affect Course Vital Signs Temperature 37.2 C 08/18/18 18:11 Pulse 118 H 08/18/18 18:11 Respiratory Rate 08/18/18 18:11 Blood Pressure 160/77 H 08/18/18 18:11 Pulse Oximetry 96 08/18/18 18:11 Temperature 37.2 C 08/18/18 18:11 Temperature Source Temporal Artery Scan 08/18/18 18:11 Pulse 118 H 08/18/18 18:11 Respiratory Rate 08/18/18 18:11 Respiratory Effort Non-Labored 08/18/18 18:11 Blood Pressure 160/77 H 08/18/18 18:11 Pulse Oximetry 96 08/18/18 18:11 Oxygen Delivery Method Room Air 08/18/18 18:11 Oxygen Flow Rate 0 08/18/18 18:11 Pain Level 4 08/18/18 18:11 Lab/Test Results Lab/Test Results: 08/18/18 18:26 Blood Blood Culture - Pending 08/18/18 18:26 Blood Blood Culture - Pending
--- NOTE | 2018-08-18 18:36 | ED.GENADUL_ITS ---
Discharge Plan Disposition Patient Disposition: [facility] INPATIENT Condition: Improving Discharge Details Chief Complaint: Diabetes Clinical Impression: Vomiting, Dehydration, Ketosis, Acute UTI Primary Care Provider: Itzel Perkins ED Provider: Ashwin Yarbrough Home Meds and New Rx's Prescriptions: No Action diclofenac sodium 1 % gel 4 gm TP QID Qty: 400 RF: 3 Novolog Flexpen U-100 Insulin 100 unit/mL insulin pen 50 unit SC .noon RF: 0 cephalexin 500 mg tablet 500 mg PO Q12H Qty: 14 RF: 0 oxycodone 10 mg tablet 10 mg PO TID MDD 3 tablets/day PRN (Reason: pain) 28 Days Qty: 84 RF: 0 30G Safety Needle See Rx Instructions .ROUTE .COMPLEX MDD 6 Qty: 200 RF: 6 pen needle, diabetic, safety 30 gauge x 3/16 needle .ROUTE .MEDSUPPLY Qty: 200 RF: 6 wheelchair device .ROUTE .MEDSUPPLY Qty: 1 RF: 0 naloxone 4 mg/actuation spray,non-aerosol 1 spray FRANCO ONCE PRN (Reason: opioid overdose) Qty: 2 RF: 0 aripiprazole [Abilify] 30 mg tablet 30 mg PO DAILY RF: 0 lamotrigine [Lamictal XR] 300 mg tablet extended release 24hr 300 mg PO DAILY RF: 0 Blood Glucose Test strip 1 ea Miscellaneous TID & PRN Qty: 400 RF: 12 zolpidem [Ambien] 10 MG tablet 10 mg PO HS Qty: 1 RF: 0 cyanocobalamin (vitamin B-12) [Vitamin B-12] 1,000 MCG tablet 1,000 mcg PO DAILY RF: 0 clonazepam 0.5 MG tablet 0.5 mg PO RF: 0 lancets 1 EACH misc 1 ea Miscellaneous TID Qty: 400 RF: 12 silver sulfadiazine 20 GM cream 20 gm Topical BID Qty: 1 RF: 1 prazosin 1 mg capsule 2 mg PO HS RF: 0 semaglutide 1 mg/0.75 mL (2 mg/1.5 mL) pen injector 1 mg SC QWEEK Qty: 3 RF: 3 simvastatin 20 mg tablet 20 mg PO HS Qty: 90 RF: 3 Glucagon Emergency Kit (human) 1 mg recon soln 1 mg subcut ONCE Qty: 1 RF: 1 Lyrica 150 mg capsule 150 mg PO TID Qty: 270 RF: 1 Novolog U-100 Insulin aspart 100 unit/mL solution 76 unit SC QACBREAK Qty: 30 RF: 0 V-GO 40 device .ROUTE .MEDSUPPLY Qty: 30 RF: 0 potassium chloride 20 mEq tablet extended release 20 meq PO BID Qty: 180 RF: 1 propranolol 10 mg tablet 10 mg PO TID Qty: 270 RF: 3 hydroxyzine pamoate [Vistaril] 50 mg capsule 50 mg PO TID Qty: 90 RF: 0 cholecalciferol (vitamin D3) 1,000 UNITS tablet 2,000 unit PO HS RF: 0 venlafaxine 150 MG capsule,extended release 24hr 300 mg PO HS Qty: 0 RF: 0 Humulin R U-500 (Conc) Kwikpen 500 unit/mL (3 mL) insulin pen 200 unit subcut TID RF: 0 Medical Decision Making This is a 47-year-old male with past medical history of type 2 diabe maxine who takes 200 units 3 times daily of insulin U5 100 200 units 3 times daily, who presents with 3 to 4 days of vomiting, diarrhea, fever, chills, and notable feelings of malaise. He went to see urgent care today and they recommended that he come in for further evaluation. Exam demonstrates a notably dehydrated appearing male, who is tachycardic. Abdomen is nontender nondistended. Bowel sounds are present. No history of GI surgeries, and I doubt obstruction. I suspect that the patient most likely has a combination of HH NK or DKA, in combination with a viral GI bug which is causing worsening of his symptoms. Additionally he does have dysuria, mild burning with urination, we will evaluate for urinary tract infection. 8:17 PM Urinalysis shows evidence of UTI. We will start 2 g of Rocephin, white count normal, no bandemia or left shift. Laboratory work-up demonstrates moderate acidosis at 7.18, with a bicarb of 12-13. Glucose levels are only slightly elevated at 230. Lactate is normal. Renal function stable. Patient is feeling slightly improved with fluids, we are on a liter 3 at this point. I do feel that there is a notable component of profound dehydration. His acidosis may be from DKA, but his clinical picture is atypical in conjunction with his history of type 2 diabetes specifically. This also may be profound starvation ketoacidosis as the cause of his symptoms. I did contact Dr. Lange and discussed the case with him. They are shared decision making process we have agreed to hold off on insulin infusion, and get a repeat set of electrolytes. He continues to demonstrate a gap, we will start insulin. Otherwise we will continue to rehydrate. He continues to demonstrate no abdominal pain or tenderness whatsoever. Diagnosis urinary tract infection, nausea and vomiting, acidosis with ketosis, potentially starvation ketosis. I have extensively reviewed the treatment plan with the patient. I have addressed all patient concerns at this time. I have also discussed the plan with the admitting physician and they agree with the current assessment and plan and have agreed to assume responsibility for the patient. All parties demonstrate verbal unde rstanding and agreement with our assessment and plan at this time. EKG 18: 26 Rate 114, OH 112, QTc 482, QRS 104, sinus tachycardia, OH slightly shortened, no evidence of delta wave. No significant ST elevations or depressions or Q waves. No T wave inversions. HPI General Date/Time Provider Initiated Documentation: 08/18/18 18:13 . HPI Narrative: This is a 47-year-old male with past medical history of type 2 diabetes, history of blood clot in the past after surgery not on blood thinners, hypertension, who presents today for evaluation of nausea vomiting and diarrhea for the last 3 to 4 days, he has had a mild fever at home. He denies any recent antibiotic use. He denies any other sick contacts. He is a type II diabetic and only takes insulin, Humulin R U-500 200 units 3 times daily. He denies any abdominal pain, chest pain, pleuritic chest pain, chest heaviness or shortness of breath. He denies any hematochezia, melena, acholic stool, or hematemesis. He also admits to mild dysuria and increase in urinary frequency. He denies any significant hematuria. He denies any flank pain. He denies any other complaints at this time. No other modifying factors. Related Data Home Medications Medication Instructions Recorded Confirmed cholecalciferol (vitamin D3) 2,000 unit PO HS 05/21/12 08/18/18 zolpidem [Ambien] 10 mg PO HS #1 09/03/13 08/18/18 cyanocobalamin (vitamin B-12) 1,000 mcg PO DAILY 12/21/14 08/18/18 [Vitamin B-12] venlafaxine 300 mg PO HS #0 11/27/15 08/18/18 clonazepam 0.5 mg PO 04/16/17 08/05/18 lancets #400 ea 08/14/17 08/05/18 silver sulfadiazine 20 gm TOPICAL BID #1 bottle 10/31/17 08/18/18 diclofenac 1 % topical gel 4 gm TP QID #400 gm 12/11/17 08/18/18 prazosin 1 mg capsule 2 mg PO HS cap 12/11/17 08/18/18 wheelchair #1 each 12/26/17 08/05/18 30G Safety Needle See Rx Instructions .ROUTE 01/14/18 08/05/18 .COMPLEX #200 unit MDD 6 pen needle, diabetic, safety 30 #200 each 01/14/18 08/05/18 gauge x 3/16 naloxone 4 mg/actuation nasal spray 1 spray FRANCO ONCE PRN #2 each 01/15/18 08/18/18 semaglutide 1 mg/dose (2 mg/1.5 1 mg SC QWEEK #3 ml 03/12/18 08/18/18 mL) subcutaneous pen injector simvastatin 20 mg tablet 20 mg PO HS #90 tab 03/19/18 08/18/18 insulin aspart U- 100 100 unit/mL 50 unit SC .noon ml 04/01/18 08/18/18 subcutaneous pen aripiprazole 30 mg tablet 30 mg PO DAILY 04/15/18 08/18/18 blood sugar diagnostic [Blood #400 strip 04/15/18 08/05/18 Glucose Test] lamotrigine ER 300 mg 300 mg PO DAILY 04/15/18 08/18/18 tablet,extended release 24 hr glucagon (human recombinant) 1 mg 1 mg SUBCUT ONCE #1 each 04/19/18 08/18/18 solution for injection pregabalin 150 mg capsule 150 mg PO TID #270 cap 04/23/18 08/18/18 insulin aspart U- 100 100 unit/mL 76 unit SC QACBREAK #30 ml 06/05/18 08/18/18 subcutaneous solution subcutaneous insulin delivery #30 each 06/05/18 08/05/18 device, 40 unit potassium chloride ER 20 mEq 20 meq PO BID #180 tab 06/11/18 08/18/18 tablet,extended release cephalexin 500 mg tablet 500 mg PO Q12H #14 tab 06/24/18 08/18/18 propranolol 10 mg tablet 10 mg PO TID #270 tab-cap 07/08/18 08/18/18 hydroxyzine pamoate 50 mg capsule 50 mg PO TID #90 cap 07/15/18 08/18/18 oxycodone 10 mg tablet 10 mg PO TID PRN 28 Days #84 tab 08/05/18 08/18/18 MDD 3 tablets/day Humulin R U-500 (Conc) Kwikpen 200 unit SUBCUT TID 08/18/18 08/18/18 Previous Rx's Medication Instructions Recorded venlafaxine 300 mg PO HS #0 11/27/15 lancets #400 ea 08/14/17 silver sulfadiazine 20 gm TOPICAL BID #1 bottle 10/31/17 diclofenac 1 % topical gel 4 gm TP QID #400 gm 12/11/17 wheelchair #1 each 12/26/17 30G Safety Needle See Rx Instructions .ROUTE 01/14/18 .COMPLEX #200 unit MDD 6 pen needle, diabetic, safety 30 #200 each 01/14/18 gauge x 3/16 naloxone 4 mg/actuation nasal spray 1 spray FRANCO ONCE PRN #2 each 01/15/18 semaglutide 1 mg/dose (2 mg/1.5 1 mg SC QWEEK #3 ml 03/12/18 mL) subcutaneous pen injector simvastatin 20 mg tablet 20 mg PO HS #90 tab 03/19/18 blood sugar diagnostic [Blood #400 strip 04/15/18 Glucose Test] glucagon (human recombinant) 1 mg 1 mg SUBCUT ONCE #1 each 04/19/18 solution for injection pregabalin 150 mg capsule 150 mg PO TID #270 cap 04/23/18 insulin aspart U- 100 100 unit/mL 76 unit SC QACBREAK #30 ml 06/05/18 subcutaneous solution subcutaneous insulin delivery #30 each 06/05/18 device, 40 unit potassium chloride ER 20 mEq 20 meq PO BID #180 tab 06/11/18 tablet,extended release cephalexin 500 mg tablet 500 mg PO Q12H #14 tab 06/24/18 propranolol 10 mg tablet 10 mg PO TID #270 tab-cap 07/08/18 hydroxyzine pamoate 50 mg capsule 50 mg PO TID #90 cap 07/15/18 oxycodone 10 mg tablet 10 mg PO TID PRN 28 Days #84 tab 08/05/18 MDD 3 tablets/day Allergies Allergy/AdvReac Type Severity Reaction Status Date / Time quetiapine fumarate Allergy Severe suicidal Verified 08/18/18 18:17 [From Seroquel] vancomycin Allergy Severe Anaphylaxsi Verified 08/18/18 18:17 s venom-honey bee Allergy Severe anaphylacti Verified 08/18/18 18:17 [bee venom (honey bee)] c carbamazepine AdvReac Severe psychosis,s Verified 08/18/18 18:17 uicidal fluoxetine HCl [From Symbyax] AdvReac Severe jaundice Verified 08/18/18 18:17 olanzapine [From Symbyax] AdvReac Severe jaundice Verified 08/18/18 18:17 General Stated Complaint: Diabetes DAVONTE: 3 Review of Systems Review of Systems All systems reviewed & are unremarkable except as noted in HPI and below PFSH Social History Smoking/Tobacco Use Status: Never Alcohol Intake: never Drug use: Never Substance use type: does not use Household members: spouse Housing: house What is your relationship status?: Panel score (0-1 are the most socially isolated patients): 1 What type of physical activity do you participate in: none Working smoke detector in home: Yes Fire extinguisher in home: Yes Carbon monox detector in home: Yes Do you feel safe at home: Yes Do you feel safe in your relationship?: Yes Exam Narrative Exam Narrative: 1.Const: Well-nourished, Well-developed, appearing stated age 2.Eyes: PERRL, no conjunctival injection, and symmetrical lids. 3.ENT: Atraumatic external nose and ears. Dry MM. Neck: Symmetric, trachea midline, No thyromegaly. 4.CVS: +S1/S2, No murmurs or gallops. Peripheral pulses 2+ and equal in all extremities. Brisk capillary refill in all extremities. 5.RESP: Unlabored respiratory effort. Clear to auscultation bilaterally. No wheezes rales or rhonchi 6.GI: Soft, Nontender/Nondistended, No hepatosplenomegaly. No guarding or rebound. 7.MSK: Normocephalic/Atraumatic, Extremities w/o deformity or ttp No cyanosis or clubbing, Normal movement of all extremities, aside from his [id number] amputation of his left lower extremity 8.Skin: Warm, Dry. No rashes or lesions. 9.Neuro: staff counsel II-XII grossly intact. Sensation grossly intact, no focal neurolo gic deficits. 10.Psych: (AAO) x3. Appropriate mood and affect Course Vital Signs Temperature 37.2 C 08/18/18 18:11 Pulse 118 H 08/18/18 18:11 Respiratory Rate 08/18/18 18:11 Blood Pressure 160/77 H 08/18/18 18:11 Pulse Oximetry 96 08/18/18 18:11 Temperature 37.2 C 08/18/18 18:11 Temperature Source Temporal Artery Scan 08/18/18 18:11 Pulse 118 H 08/18/18 18:11 Respiratory Rate 08/18/18 18:11 Respiratory Effort Non-Labored 08/18/18 18:11 Blood Pressure 160/77 H 08/18/18 18:11 Pulse Oximetry 96 08/18/18 18:11 Oxygen Delivery Method Room Air 08/18/18 18:11 Oxygen Flow Rate 0 08/18/18 18:11 Pain Level 4 08/18/18 18:11 Lab/Test Results Lab/Test Results: 08/18/18 18:26 Blood Blood Culture - Pending 08/18/18 18:26 Blood Blood Culture - Pending
[2018-08-18 18:45] LABS: HCO3 (Venous) 12 mmol/L (22-28); O2 Sat (Venous) 88 % (70-80); TCO2 (Venous) 11 mmol/L (22-29); pCO2 (Venous) 32 mm/Hg (34-47); pO2 (Venous) 56 mm/Hg (28-44)
[2018-08-18 18:48] LABS: Abs Immature Grans 0.05 k/cumm (0.0-0.09); Absolute Basophil Count 0.04 k/cumm (0.0-0.2); Absolute Eosinophil Count 0.08 k/cumm (0.0-0.7); Absolute Lymphocyte Count 1.05 k/cumm (1.2-3.4); Absolute Monocyte Count 0.53 k/cumm (0.11-0.7); Absolute Neutrophil Count 4.75 k/cumm (1.2-6.7); Basophils % 0.6; Eosinophils % 1.2; HCT 41.2 % (40.0-50.0); HGB 13.3 g/dL (13.5-17.5); Immature Grans % 0.8; Lymphocytes % 16.2; Mean Corp. HGB Concentration 32.3 g/dL (32.0-36.0); Mean Corpuscular Hemoglobin 26.8 pg (27.0-33.0); Mean Corpuscular Volume 83.1 fL (80-95); Mean Platelet Volume 9.4 fL (8.0-11.0); Monocytes % 8.2; Platelet Count 223 x1000/uL (130-400); RBC 4.96 m/cumm (4.50-6.00); RBC Distribution Width 15.4 % (11.8-14.1)
[2018-08-18 18:49] LABS: pH (Venous) 7.18 (7.32-7.43)
[2018-08-18 18:50] LABS: Lactate-non-spesis 1.4 mmol/l (0.6-1.4)
[2018-08-18 19:03] LABS: PTT Activated 28.1 sec (21.0-31.4); Prothrombin Time 9.9 sec (9.3-11.0)
[2018-08-18] MEDS: Normal Saline 1,000 ML 1000 ML IV ×3 (19:17→19:57)
[2018-08-18 19:18] LABS: Bilirubin Small (Negative); Blood Small (Negative); Clarity Clear; Glucose 500 mg/dL (Negative); Ketones >=160 mg/dL (Negative); Leukocyte Esterase Negative (Negative); Nitrite Negative (Negative); Specific Gravity 1.025 (1.005-1.025); Urobilinogen 0.2 EU/dL (Up TO 0.2)
[2018-08-18 19:44] LABS: Bacteria Few HPF (Negative); C & S Indicated? Yes; Crystals Negative HPF (Negative); Epithelial Cells Negative HPF (Negative); Other Cells Few Renal (Negative); WBC >50 HPF (0-5)
[2018-08-18 19:49] LABS: ALT 22 U/L (12-78); AST 13 U/L (15-37); Albumin 3.1 g/dL (3.4-5.0); Alkaline Phosphatase 123 U/L (46-116); Anion Gap 19.8 mmol/L (3-11); BUN 10 mg/dL (7-18); Bilirubin, Total 0.6 mg/dL (0.2-1.0); CO2 13.2 mmol/L (21.0-32.0); CREATININE 0.98 mg/dL (0.70-1.30); Calcium 8.6 mg/dL (8.5-10.1); Chloride 97 mmol/L (98-107); Glucose 286 mg/dL (70-100); Lipase 109 U/L (73-393); Potassium 3.9 mmol/L (3.5-5.1); Sodium 130 mmol/L (136-145); TSH (W/Ref FT4) 1.21 uIU/mL (0.358-3.74)
[2018-08-18] MEDS: cefTRIAXone 2 GM/50 ML BAG IVPB (20:21)
--- NOTE | 2018-08-18 20:28 | W.PM.HP.N ---
Date of service: 08/18/18 Time of Service: 20:29 Assessment and Plan (1) UTI (urinary tract infection): Current visit: Yes Status: Acute UTI with hihg AG metabolic accidosis. I see no explanation for this other than DKA and I suspect his physiology is at least to some degree Type 1. At any rate will recheck HCO3. If substantial acidosis persists will begin insulin infusion (with added D5 as sugar drops <200); otherwise will cover sugar with high dose sliding scale and continue hydration. As to pyuria, presumed UTI, will begin Cipro pending cultures. History of Present Illness Chief Complaint: nausea Narrative: 47 male with reported history Type 2 DM, but possibly GIOVANNI, though no prior history DKA -- comes in with 4 days vomiting (now resolved) and 3 days dysuria. In ER w/u of note for sugar 286, HCO3 13 and pyuria. Lactate negative, + ketonuria and anion gap 19.8. Patient given 2 liter IVF and sayss he feels very much better. Repeat electrolytes pending at this time. patient admitted for further management. Note he has not been taking usual insulin. 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 Social History Smoking/Tobacco Use Status: Never Alcohol Intake: never Drug use: Never Substance use type: does not use Household members: spouse Housing: house What is your relationship status?: Panel score (0-1 are the most socially isolated patients): 1 What type of physical activity do you participate in: none Working smoke detector in home: Yes Fire extinguisher in home: Yes Carbon monox detector in home: Yes Do you feel safe at home: Yes Do you feel safe in your relationship?: Yes Meds Home Medications Medication Instructions Recorded Confirmed Type cholecalciferol (vitamin D3) 2,000 unit PO HS 05/21/12 08/18/18 History zolpidem [Ambien] 10 mg PO HS #1 09/03/13 08/18/18 History cyanocobalamin (vitamin B-12) 1,000 mcg PO DAILY 12/21/14 08/18/18 History [Vitamin B-12] venlafaxine 300 mg PO HS #0 11/27/15 08/18/18 Rx clonazepam 0.5 mg PO 04/16/17 08/05/18 History lancets #400 ea 08/14/17 08/05/18 Rx silver sulfadiazine 20 gm TOPICAL BID #1 bottle 10/31/17 08/18/18 Rx diclofenac 1 % topical gel 4 gm TP QID #400 gm 12/11/17 08/18/18 Rx prazosin 1 mg capsule 2 mg PO HS cap 12/11/17 08/18/18 History wheelchair #1 each 12/26/17 08/05/18 Rx 30G Safety Needle See Rx Instructions .ROUTE 01/14/18 08/05/18 Rx .COMPLEX #200 unit MDD 6 pen needle, diabetic, safety 30 #200 each 01/14/18 08/05/18 Rx gauge x /16 naloxone 4 mg/actuation nasal spray 1 spray FRANCO ONCE PRN #2 each 01/15/18 08/18/18 Rx semaglutide 1 mg/dose (2 mg/1.5 1 mg SC QWEEK #3 ml 03/12/18 08/18/18 Rx mL) subcutaneous pen injector simvastatin 20 mg tablet 20 mg PO HS #90 tab 03/19/18 08/18/18 Rx insulin aspart U- 100 100 unit/mL 50 unit SC .noon ml 04/01/18 08/18/18 History subcutaneous pen aripiprazole 30 mg tablet 30 mg PO DAILY 04/15/18 08/18/18 History blood sugar diagnostic [Blood #400 strip 04/15/18 08/05/18 Rx Glucose Test] lamotrigine ER 300 mg 300 mg PO DAILY 04/15/18 08/18/18 History tablet,extended release 24 hr glucagon (human recombinant) 1 mg 1 mg SUBCUT ONCE #1 each 04/19/18 08/18/18 Rx solution for injection pregabalin 150 mg capsule 150 mg PO TID #270 cap 04/23/18 08/18/18 Rx insulin aspart U- 100 100 unit/mL 76 unit SC QACBREAK #30 ml 06/05/18 08/18/18 Rx subcutaneous solution subcutaneous insulin delivery #30 each 06/05/18 08/05/18 Rx device, 40 unit potassium chloride ER 20 mEq 20 meq PO BID #180 tab 06/11/18 08/18/18 Rx tablet,extended release cephalexin 500 mg tablet 500 mg PO Q12H #14 tab 06/24/18 08/18/18 Rx propranolol 10 mg tablet 10 mg PO TID #270 tab-cap 07/08/18 08/18/18 Rx hydroxyzine pamoate 50 mg capsule 50 mg PO TID #90 cap 07/15/18 08/18/18 Rx oxycodone 10 mg tablet 10 mg PO TID PRN 28 Days #84 tab 08/05/18 08/18/18 Rx MDD 3 tablets/day Humulin R U-500 (Conc) Kwikpen 200 unit SUBCUT TID 08/18/18 08/18/18 History Allergies Allergy/AdvReac Type Severity Reaction Status Date / Time quetiapine fumarate Allergy Severe suicidal Verified 08/18/18 18:17 [From Seroquel] vancomycin Allergy Severe Anaphylaxsi Verified 08/18/18 18:17 s venom-honey bee Allergy Severe anaphylacti Verified 08/18/18 18:17 [bee venom (honey bee)] c carbamazepine AdvReac Severe psychosis,s Verified 08/18/18 18:17 uicidal fluoxetine HCl [From Symbyax] AdvReac Severe jaundice Verified 08/18/18 18:17 olanzapine [From Symbyax] AdvReac Severe jaundice Verified 08/18/18 18:17 Exam Narrative Exam Narrative: 160/77, 118, 19, 37.2; HEENT unremarkable; neck supple; lungs clearr; heart tachy/regular; abdomen +BS, sofft, NT; /rectal deferred; extr: s/p left AKA, Unna boot RLE; neuro A+O, non-focal Results Labs : 08/18/18 18:15 08/18/18 18:15 Laboratory Results - last 24 hr 08/18/18 08/18/18 08/18/18 18:15 18:15 18:15 WBC 6.50 RBC 4.96 Hgb 13.3 L Hct 41.2 MCV 83.1 MCH 26.8 L MCHC 32.3 RDW 15.4 H Plt Count 223 MPV 9.4 Immature Gran % 0.8 Neutrophils % 73.0 Lymphocytes % 16.2 Monocytes % 8.2 Eosinophils % 1.2 Basophils % 0.6 Absolute Neutrophils 4.75 Absolute Lymphocytes 1.05 L Absolute Monocytes 0.53 Absolute Eosinophils 0.08 Absolute Basophils 0.04 PT INR APTT VBG pH VBG pCO2 VBG pO2 VBG HCO3 VBG Total CO2 VBG O2 Saturation VBG Base Excess Sodium 130 L Potassium 3.9 Chloride 97 L Carbon Dioxide 13.2 L Anion Gap 19.8 H BUN 10 Creatinine 0.98 Estimated GFR/1.73 m2 >= 60.00 Glucose 286 H Lactate 1.4 Calcium 8.6 Total Bilirubin 0.6 AST 13 L ALT 22 Alkaline Phosphatase 123 H Total Protein 8.0 Albumin 3.1 L Lipase 109 TSH 1.21 Urine Color Urine Clarity Urine pH Ur Specific [place] Urine Protein Urine Ketones Urine Blood Urine Nitrite Urine Bilirubin Urine Urobilinogen Ur Leukocyte Esterase Urine RBC Urine WBC Ur Epithelial Cells Urine Crystals Urine Bacteria Urine Mucus Urine Other Ur Culture Indicated? Urine Glucose 08/18/18 08/18/18 08/18/18 18:15 18:15 18:55 WBC RBC Hgb Hct MCV MCH MCHC RDW Plt Count MPV Immature Gran % Neutrophils % Lymphocytes % Monocytes % Eosinophils % Basophils % Absolute Neutrophils Absolute Lymphocytes Absolute Monocytes Absolute Eosinophils Absolute Basophils PT 9.9 INR 1.0 APTT 28.1 VBG pH 7.18 L VBG pCO2 32 L VBG pO2 56 H VBG HCO3 12 L VBG Total CO2 11 L VBG O2 Saturation 88 H VBG Base Excess Sodium Potassium Chloride Carbon Dioxide Anion Gap BUN Creatinine Estimated GFR/1.73 m2 Glucose Lactate Calcium Total Bilirubin AST ALT Alkaline Phosphatase Total Protein Albumin Lipase TSH Urine Color Yellow Urine Clarity Clear Urine pH 5.0 Ur Specific [place] 1.025 Urine Protein 30 H Urine Ketones >=160 H Urine Blood Small H Urine Nitrite Negative Urine Bilirubin Small H Urine Urobilinogen 0.2 Ur Leukocyte Esterase Negative Urine RBC 10-20 H Urine WBC >50 Ur Epithelial Cells Negative Urine Crystals Negative Urine Bacteria Few Urine Mucus Not Applicable Urine Other Few renal Ur Culture Indicated? Yes Urine Glucose 500 H Last Vital Signs Temp 37.2 C 08/18/18 18:11 Pulse 118 H 08/18/18 18:11 Resp 19 08/18/18 18:11 BP 160/77 H 08/18/18 18:11 Pulse Ox 96 08/18/18 18:11
[2018-08-18 20:46] LABS: Anion Gap 18.9 mmol/L (3-11); BUN 9 mg/dL (7-18); CO2 11.1 mmol/L (21.0-32.0); CREATININE 0.88 mg/dL (0.70-1.30); Calcium 7.6 mg/dL (8.5-10.1); Chloride 102 mmol/L (98-107); Glucose 256 mg/dL (70-100); Potassium 3.7 mmol/L (3.5-5.1); Sodium 132 mmol/L (136-145)
[2018-08-18] MEDS: oxyCODONE 10 MG TAB PO (22:29)
[2018-08-18] MEDS: Zolpidem 10 MG TAB PO (22:29)
[2018-08-18] MEDS: Venlafaxine 150 MG CAPCR 300 MG PO (22:29)
[2018-08-18] MEDS: Simvastatin 20 MG TAB PO (22:29)
[2018-08-18] MEDS: Cholecalciferol (Vitamin D3) 1,000 UNIT TAB 2000 UNITS PO (22:29)
[2018-08-18] MEDS: POTASSIUM CHLORIDE/D5-0.9%NACL 1,000 ML 150 MEQ IV (22:40)
[2018-08-18 23:00] VITALS: TEMP 38.1
[2018-08-18 23:01] VITALS: BP 174/71; PULSE 108; PULSE 109; RESP 16; O2SAT 96
[2018-08-18 23:16] VITALS: BP 150/66; PULSE 103; PULSE 106; RESP 19; O2SAT 95
[2018-08-18 23:31] VITALS: BP 164/70; PULSE 106; PULSE 110; RESP 17; O2SAT 94
[2018-08-18 23:46] VITALS: BP 161/78; PULSE 102; PULSE 109; RESP 17; O2SAT 95
[2018-08-19] VITALS (97 sets, daily range): BP systolic 116–181; BP diastolic 63–139; PULSE 82–116; RESP 10–29; TEMP 36.3–36.9; O2SAT 90–99
[2018-08-19 00:30] LABS: Anion Gap 17.2 mmol/L (3-11); CO2 12.8 mmol/L (21.0-32.0); Chloride 102 mmol/L (98-107); Potassium 3.6 mmol/L (3.5-5.1); Sodium 132 mmol/L (136-145)
[2018-08-19] MEDS: Propranolol 10 MG TAB PO ×4 (00:40→22:49)
[2018-08-19] MEDS: Pregabalin 50 MG CAP 150 MG PO ×4 (00:41→21:16)
[2018-08-19] MEDS: Prazosin 1 MG CAP 2 MG PO ×2 (00:41→22:37)
[2018-08-19] MEDS: hydrOXYzine PAMOATE 25 MG CAP 50 MG PO ×4 (00:41→22:37)
[2018-08-19] MEDS: Propranolol 20 MG TAB (00:50)
[2018-08-19] MEDS: Acetaminophen 325 MG TAB 650 MG PO (00:52)
[2018-08-19] MEDS: lamoTRIgine 100 MG TAB 300 MG PO ×2 (01:25→22:00)
[2018-08-19 06:45] LABS: Anion Gap 11.9 mmol/L (3-11); CO2 17.1 mmol/L (21.0-32.0); Chloride 106 mmol/L (98-107); Sodium 135 mmol/L (136-145)
[2018-08-19 06:56] LABS: Potassium 2.9 mmol/L (3.5-5.1)
[2018-08-19] MEDS: POTASSIUM CHLORIDE/D5-0.9%NACL 1,000 ML 200 MEQ IV (08:13)
[2018-08-19 08:20] LABS: HCO3 (Venous) 15 mmol/L (22-28); O2 Sat (Venous) 97 % (70-80); TCO2 (Venous) 14 mmol/L (22-29); pCO2 (Venous) 33 mm/Hg (34-47); pH (Venous) 7.28 (7.32-7.43); pO2 (Venous) 97 mm/Hg (28-44)
[2018-08-19 08:21] LABS: Abs Immature Grans 0.02 k/cumm (0.0-0.09); Absolute Basophil Count 0.03 k/cumm (0.0-0.2); Absolute Eosinophil Count 0.09 k/cumm (0.0-0.7); Absolute Lymphocyte Count 1.18 k/cumm (1.2-3.4); Absolute Neutrophil Count 2.35 k/cumm (1.2-6.7); Basophils % 0.7; Eosinophils % 2.1; HCT 36.8 % (40.0-50.0); Immature Grans % 0.5; Lymphocytes % 27.6; Mean Corp. HGB Concentration 32.6 g/dL (32.0-36.0); Mean Corpuscular Volume 82.7 fL (80-95); Mean Platelet Volume 9.5 fL (8.0-11.0); Monocytes % 14.1; Platelet Count 224 x1000/uL (130-400); RBC 4.45 m/cumm (4.50-6.00); RBC Distribution Width 15.2 % (11.8-14.1); White Blood Cell Count 4.27 k/cumm (4.4-10.8)
[2018-08-19 08:41] LABS: Magnesium 1.7 mg/dL (1.8-2.4)
[2018-08-19] MEDS: Enoxaparin 40 MG/0.4 ML SYR SC (08:54)
[2018-08-19] MEDS: Lidocaine 2% Jelly 6 ML SYR (08:55)
[2018-08-19] MEDS: Potassium Chloride 20 MEQ TABCR PO ×3 (08:55→23:00)
[2018-08-19] MEDS: ARIPiprazole 15 MG TAB 30 MG PO (08:55)
[2018-08-19] MEDS: Cyanocobalamin 500 MCG TAB 1000 MCG PO (08:56)
[2018-08-19] MEDS: Normal Saline Flush 10 ML SYR (08:57)
[2018-08-19] MEDS: Insulin Glargine 300 UNITS/3 ML PEN 150 UNITS SC ×2 (09:36→22:55)
[2018-08-19] MEDS: POTASSIUM CHLORIDE 20 MEQ/100 ML BAG 50 MEQ IVPB ×2 (09:36→12:16)
--- NOTE | 2018-08-19 09:47 | PDOC.CMIN ---
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 He recently relocated from [facility], where his , Rosina is currently employed as a teacher at [employer]. After the school year, she will be relocating with him. CURRENT FUNCTIONAL STATUS:: Ricardo was sitting up in his chair when CM met with him. He shared concerns around relocating to an area where he is not fully attached. He reported not wanting to go to [facility] and having his mother transport him to [facility]. He was pleasant in interaction and forthcoming with information. ADVANCE DIRECTIVES:: On file at [facility], Rosina as Agent, Ajay as alternate. Has patient been provided with information about the portal?: Yes Did the patient sign up for the portal?: No CODE STATUS:: Full Code INSURANCE COVERAGE / FINANCIAL ISSUES:: Medicare CURRENT HOME/COMMUNITY SERVICES/EQUIPMENT:: Wheeled walker, raised toilet seat, motorized chair PRIMARY CARE PHYSICIAN:: Yani Caballero POTENTIAL DISCHARGE NEEDS:: Review discharge instructions, follow up plan of care. PATIENT/FAMILY EDUCATION NEEDS:: PCP attachment process, equipment needs, insurance limitations. ANTICIPATED BARRIERS TO DISCHARGE:: Coordination of information to [facility] for PCP attachment. TRANSPORTATION:: Via private vehicle with his , Rosina. PLAN:: Ricardo will discharge home when ready per MD. He will follow up with his new PCP, and plan of care as prescribed. He will transport home via private vehicle with his , Rosina.
--- NOTE | 2018-08-19 10:20 | DI.RAD_ITS ---
SYMPTOMS/DIAGNOSIS: FEVER UNKNOWN ORIGIN PORTABLE AP CHEST: The heart is normal in size. The lungs are clear. The mediastinal structures and pleura appear intact. CONCLUSION: Normal chest.
[2018-08-19 10:25] LABS: BUN 8 mg/dL (7-18); CREATININE 0.82 mg/dL (0.70-1.30); Calcium 7.9 mg/dL (8.5-10.1); Chloride 105 mmol/L (98-107); Glucose 281 mg/dL (70-100); Magnesium 1.6 mg/dL (1.8-2.4); Potassium 3.8 mmol/L (3.5-5.1); Sodium 134 mmol/L (136-145)
--- NOTE | 2018-08-19 10:54 | INITIAL_ITS ---
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 He recently relocated from [facility], where his , Rosina is currently employed as a teacher at [employer]. After the school year, she will be relocating with him. CURRENT FUNCTIONAL STATUS:: Ricardo was sitting up in his chair when CM met with him. He shared concerns around relocating to an area where he is not fully attached. He reported not wanting to go to [facility] and having his mother transport him to [facility]. He was pleasant in interaction and [facility] information. ADVANCE DIRECTIVES:: On file at [facility], Rosina as Agent, Ajay as alternate. Has patient been provided with information about the portal?: Yes Did the patient sign up for the portal?: No CODE STATUS:: Full Code INSURANCE COVERAGE / FINANCIAL ISSUES:: Medicare CURRENT HOME/COMMUNITY SERVICES/EQUIPMENT:: Wheeled walker, raised toilet seat, motorized chair PRIMARY CARE PHYSICIAN:: Yani Caballero POTENTIAL DISCHARGE NEEDS:: Review discharge instructions, follow up plan of care. PATIENT/FAMILY EDUCATION NEEDS:: PCP attachment process, equipment needs, insurance limitations. ANTICIPATED BARRIERS TO DISCHARGE:: Coordination of information to [facility] for PCP attachment. TRANSPORTATION:: Via private vehicle with his , Rosina. PLAN:: Ricardo will discharge home when ready per MD. He will follow up with his new PCP, and plan of care as prescribed. He will transport home via private vehicle with his , Rosina.
--- NOTE | 2018-08-19 11:00 | DI.US_ITS ---
SYMPTOM/DIAGNOSIS: DYSURIA, FREQUENCY, ? OBSTRUCTIVE UROPATHY OR STONES RENAL ULTRASOUND: Routine examination. Comparison CT scan is 08/21/15. The right kidney measures 13.2 cm. long. No renal mass, calculus or obstruction is seen. There is normal blood flow to the right kidney. The left kidney measures 12.8 cm. long. No renal mass, calculus or obstruction is identified. There is normal blood flow to the left kidney. The prevoid urinary bladder volume is 27 cc's. The ureteral jets were not visualized during the examination. No intraluminal mass is seen. The patient completely emptied upon voiding. The prostate gland measures 50 cc's. IMPRESSION: 1. No evidence of renal obstruction or nephrolithiasis. 2. Enlarged prostate gland.
[2018-08-19] MEDS: POTASSIUM CHLORIDE/0.9% NACL 1,000 ML 200 MEQ IV (11:16)
[2018-08-19] MEDS: Normal Saline 100 ML 20 ML (11:18)
[2018-08-19] MEDS: Normal Saline-STERILE FIELD 0.9% 10 ML SYR (11:19)
[2018-08-19] MEDS: clonazePAM 0.5 MG TAB PO ×2 (11:20→23:00)
[2018-08-19] MEDS: MAGNESIUM SULFATE 2 GM/50 ML BAG IVPB (11:21)
--- NOTE | 2018-08-19 12:12 | PHARADMIT ---
Admission Pharmacy Clinical Review Code Status Full Code Current Weight 144.9 kg Renally Cleared and Narrow Therapeutic Index Meds CrCl ~165ml/min; meds ok QTc Value / Action Taken 482 - ARIPIPRAZOLE AND VENLAFAXINE BP Control, Fever 162/73, afebrile as of 08/19 Electrolytes reviewed Na 134; K 3.8; Mg 1.8 DVT Prophylaxis Enoxaparin 40mg Opiate Usage / Scheduled Bowel Regimen Ordered Oxycodone 10mg PRN; yes Plt/SCr for Heparin / Enoxaparin Plt 224/ Scr 0.82 INR for Warfarin n/a H/H stable, WBC/Bands H/H 12/36.8; WBC 4.27 Antibiotic appropriateness ceftriaxone for UTI -- likely not UTI - awaiting urine culture Cultures and Sensitivities Pending Surgical ABX d/c within 24 hr n/a DM control / Insulin Dosing BG 281 (admit for DKA); Insulin drip currently at 48U/hr plus lantus 150 BID Heart Failure (Check EF%) (MAIKOL's, B-Block, Diuretics) Propranolol; Rec'd to Dr. Sarah that ARB/ACEI would be a good idea per ADA; also found that carvedilol is the BB of choice bc of added glycemic control IV to PO Switch NA Home Meds Reviewed Meds okay -- QTc with venla and arip Home Meds Not Ordered diclofenac gel Ozempic vitamin d3 Humulin R U500 Comments Will try to DC insulin drip today as glargine and aspart were started -- per report waiting for call back from [facility] endocrine for recommendation of a regimen; U500 Pens were ordered and a drug file was created so can begin ordering 08/20; Patient's home dose was 600 units daily
--- NOTE | 2018-08-19 12:58 | PGE_ITS ---
Date of Service Date of service: 08/19/18 Time of Service: 12:54 Assessment and Plan (1) DKA (diabetic ketoacidoses): Current visit: Yes Status: Acute Requiring very high doses of insulin gtt. S/p long acting insulin. Normally receives 600 units of insulin/day - call placed to [facility] endocrinology, expecting call back with advice. For now, continue IVF, monitor/replete lytes, titrate insulin gtt per protocol. (2) Fever: Current visit: Yes Status: Acute etiology unclear. No evidence of UTI or pneumonia. It is possible he had a viral gastroenteritis, causing this, given presentation of nausea - however, nausea could have been due to DKA as well. Blood cultures are pending. Will monitor for recurrence of fever. For now, continue on empiric rocephin - will discontinue if blood cultures are negative at 24 hours and no recurrence of fever. (3) Urinary retention: Current visit: Yes Status: Acute required gonzales catheterization. After urination of >600 cc, he had >600 cc in his bladder still. US kidneys with prostatomegaly. WIll check PSA, start flomax and proscar. Will need a voiding trial in 48 hours. (4) Type 2 diabetes mellitus with complication, with long-term current use of insulin: Current visit: No Status: Chronic With extreme insulin gtt. When off insulin gtt, will need to be on his scheduled prandial U500. Attempting to get a phone consult with [facility] endocrine in regards to how to best proceed with regimen. (5) Hypokalemia: Current visit: Yes Status: Acute replete and monitor (6) Bipolar affective disorder in remission: Current visit: No Status: Acute continue home therapy (7) Gastroesophageal reflux disease: Current visit: No Status: Acute PPI (8) Hypomagnesemia: Current visit: Yes Status: Acute replete (9) Discharge planning issues: Current visit: Yes Status: Acute Full code continues to require hospitalization and ICU (10) DVT prophylaxis: Current visit: Yes Status: Acute Lovenox Subjective Interval history since last seen: Remains on insulin gtt - BG 151, up to 48 units/hr, now down to 38 units/hr. Received lantus 150 units (2 separate injections) this morning. Patient states he feels better - no nausea or shortness of breath. He denies dizziness, chest pain. He did endorse pain on urination. Found to be in urinary retention - gonzales catheter placed. US with enlarged prostate, but no obstruction or nephrolithiasis. Exam Narrative Exam Narrative: General: obese Caucasina male, laying comfortably in bed, A&Ox3, not tachypneic, not in acute distress HEENT: EOMI, dry MM Heart: RRR, no m/r/g Lungs: CTAB GI: abdomen is soft, nontender, nondistended Extremities: s/p L AKA; RLE without edema, clubbing or cyanosis, +1 pedal pulse Objective Objective Clinical Data: Abnormal lab results 08/18/18 08/18/18 08/18/18 Range/Units 18:15 18:15 18:15 WBC (4.4-10.8) k/cumm RBC (4.50-6.00) m/cumm Hgb 13.3 L (13.5-17.5) g/dL Hct (40.0-50.0) % MCH 26.8 L (27.0-33.0) pg RDW 15.4 H (11.8-14.1) % Absolute Lymphocytes 1.05 L (1.2-3.4) k/cumm VBG pH 7.18 L (7.32-7.43) VBG pCO2 32 L (34-47) mm/Hg VBG pO2 56 H (28-44) mm/Hg VBG HCO3 12 L (22-28) mmol/L VBG Total CO2 11 L (22-29) mmol/L VBG O2 Saturation 88 H (70-80) % Sodium 130 L (136-145) mmol/L Potassium (3.5-5.1) mmol/L Chloride 97 L (98-107) mmol/L Carbon Dioxide 13.2 L (21.0-32.0) mmol/L Anion Gap 19.8 H (3-11) mmol/L Glucose 286 H (70-100) mg/dL Calcium (8.5-10.1) mg/dL Magnesium (1.8-2.4) mg/dL AST 13 L (15-37) U/L Alkaline Phosphatase 123 H (46-116) U/L Albumin 3.1 L (3.4-5.0) g/dL Urine Protein (Negative) mg/dL Urine Ketones (Negative) mg/dL Urine Blood (Negative) Urine Bilirubin (Negative) Urine RBC (0-2) Urine Glucose (Negative) mg/dL 08/18/18 08/18/18 08/19/18 Range/Units 18:55 20:24 00:19 WBC (4.4-10.8) k/cumm RBC (4.50-6.00) m/cumm Hgb (13.5-17.5) g/dL Hct (40.0-50.0) % MCH (27.0-33.0) pg RDW (11.8-14.1) % Absolute Lymphocytes (1.2-3.4) k/cumm VBG pH (7.32-7.43) VBG pCO2 (34-47) mm/Hg VBG pO2 (28-44) mm/Hg VBG HCO3 (22-28) mmol/L VBG Total CO2 (22-29) mmol/L VBG O2 Saturation (70-80) % Sodium 132 L 132 L (136-145) mmol/L Potassium (3.5-5.1) mmol/L Chloride (98-107) mmol/L Carbon Dioxide 11.1 L 12.8 L (21.0-32.0) mmol/L Anion Gap 18.9 H 17.2 H (3-11) mmol/L Glucose 256 H (70-100) mg/dL Calcium 7.6 L (8.5-10.1) mg/dL Magnesium (1.8-2.4) mg/dL AST (15-37) U/L Alkaline Phosphatase (46-116) U/L Albumin (3.4-5.0) g/dL Urine Protein 30 H (Negative) mg/dL Urine Ketones >=160 H (Negative) mg/dL Urine Blood Small H (Negative) Urine Bilirubin Small H (Negative) Urine RBC 10-20 H (0-2) Urine Glucose 500 H (Negative) mg/dL 08/19/18 08/19/18 08/19/18 Range/Units 06:10 06:10 08:15 WBC 4.27 L D (4.4-10.8) k/cumm RBC 4.45 L (4.50-6.00) m/cumm Hgb 12.0 L (13.5-17.5) g/dL Hct 36.8 L (40.0-50.0) % MCH (27.0-33.0) pg RDW 15.2 H (11.8-14.1) % Absolute Lymphocytes 1.18 L (1.2-3.4) k/cumm VBG pH 7.28 L (7.32-7.43) VBG pCO2 33 L (34-47) mm/Hg VBG pO2 97 H (28-44) mm/Hg VBG HCO3 15 L (22-28) mmol/L VBG Total CO2 14 L (22-29) mmol/L VBG O2 Saturation 97 H (70-80) % Sodium 135 L (136-145) mmol/L Potassium 2.9 L* (3.5-5.1) mmol/L Chloride (98-107) mmol/L Carbon Dioxide 17.1 L (21.0-32.0) mmol/L Anion Gap 11.9 H (3-11) mmol/L Glucose (70-100) mg/dL Calcium (8.5-10.1) mg/dL Magnesium (1.8-2.4) mg/dL AST (15-37) U/L Alkaline Phosphatase (46-116) U/L Albumin (3.4-5.0) g/dL Urine Protein (Negative) mg/dL Urine Ketones (Negative) mg/dL Urine Blood (Negative) Urine Bilirubin (Negative) Urine RBC (0-2) Urine Glucose (Negative) mg/dL 08/19/18 08/19/18 Range/Units 08:15 10:05 WBC (4.4-10.8) k/cumm RBC (4.50-6.00) m/cumm Hgb (13.5-17.5) g/dL Hct (40.0-50.0) % MCH (27.0-33.0) pg RDW (11.8-14.1) % Absolute Lymphocytes (1.2-3.4) k/cumm VBG pH (7.32-7.43) VBG pCO2 (34-47) mm/Hg VBG pO2 (28-44) mm/Hg VBG HCO3 (22-28) mmol/L VBG Total CO2 (22-29) mmol/L VBG O2 Saturation (70-80) % Sodium 134 L (136-145) mmol/L Potassium (3.5-5.1) mmol/L Chloride (98-107) mmol/L Carbon Dioxide 16.0 L (21.0-32.0) mmol/L Anion Gap 13.0 H (3-11) mmol/L Glucose 281 H (70-100) mg/dL Calcium 7.9 L (8.5-10.1) mg/dL Magnesium 1.7 L 1.6 L (1.8-2.4) mg/dL AST (15-37) U/L Alkaline Phosphatase (46-116) U/L Albumin (3.4-5.0) g/dL Urine Protein (Negative) mg/dL Urine Ketones (Negative) mg/dL Urine Blood (Negative) Urine Bilirubin (Negative) Urine RBC (0-2) Urine Glucose (Negative) mg/dL Vital Signs Temperature 36.9 C 08/19/18 12:15 Temperature Source Temporal Artery Scan 08/19/18 12:15 Pulse 92 H 08/19/18 11:21 Pulse 98 H 08/19/18 12:20 Respiratory Rate 25 H 08/19/18 12:20 Respiratory Effort Non-Labored 08/19/18 12:15 Respiratory Depth Normal 08/19/18 12:15 Respiratory Pattern Normal 08/19/18 12:15 Blood Pressure 150/76 H 08/19/18 11:21 Blood Pressure Mean 94 08/19/18 11:21 Pulse Oximetry 97 08/19/18 11:40 Oxygen Delivery Method Nasal Cannula 08/19/18 03:24 Oxygen Flow Rate 1 08/19/18 03:24 Pain Level 0 08/19/18 12:15 Intake & Output 08/18/18 08/19/18 08/19/18 23:59 11:59 23:59 Intake Total 999 6291.667 / 6377.267 85.6 / 6377.267 Output Total 2024 Balance 999 4266.667 / 2852.267 -1414.4 / 2852.267 Weight 142 kg 144.9 kg Intake: IV 999 / 999 3841.667 / 3927.267 85.6 / 3927.267 Oral 2450 / 2450 Output: Urine 2024 Other: Urine Color Yellow Pale Yellow Urine Appearance Clear Clear Urine Odor Normal Comment Dr. Davey in room during scan and aware, wants gonzales placed now Pt has put out 2600ml since 0730 Voiding Methods Urinal Laboratory Results WBC 4.27 k/cumm (4.4-10.8) L D 08/19/18 06:10 RBC 4.45 m/cumm (4.50-6.00) L 08/19/18 06:10 Hgb 12.0 g/dL (13.5-17.5) L 08/19/18 06:10 Hct 36.8 % (40.0-50.0) L 08/19/18 06:10 MCV 82.7 fL (80-95) 08/19/18 06:10 MCH 27.0 pg (27.0-33.0) 08/19/18 06:10 MCHC 32.6 g/dL (32.0-36.0) 08/19/18 06:10 RDW 15.2 % (11.8-14.1) H 08/19/18 06:10 Plt Count 224 x1000/uL (130-400) 08/19/18 06:10 MPV 9.5 fL (8.0-11.0) 08/19/18 06:10 Immature Gran % 0.5 08/19/18 06:10 Neutrophils % 55.0 08/19/18 06:10 Lymphocytes % 27.6 08/19/18 06:10 Monocytes % 14.1 08/19/18 06:10 Eosinophils % 2.1 08/19/18 06:10 Basophils % 0.7 08/19/18 06:10 Absolute Neutrophils 2.35 k/cumm (1.2-6.7) 08/19/18 06:10 Absolute Lymphocytes 1.18 k/cumm (1.2-3.4) L 08/19/18 06:10 Absolute Monocytes 0.60 k/cumm (0.11-0.7) 08/19/18 06:10 Absolute Eosinophils 0.09 k/cumm (0.0-0.7) 08/19/18 06:10 Absolute Basophils 0.03 k/cumm (0.0-0.2) 08/19/18 06:10 PT 9.9 sec (9.3-11.0) 08/18/18 18:15 INR 1.0 (0.9-1.1) 08/18/18 18:15 APTT 28.1 sec (21.0-31.4) 08/18/18 18:15 VBG pH 7.28 (7.32-7.43) L 08/19/18 08:15 VBG pCO2 33 mm/Hg (34-47) L 08/19/18 08:15 VBG pO2 97 mm/Hg (28-44) H 08/19/18 08:15 VBG HCO3 15 mmol/L (22-28) L 08/19/18 08:15 VBG Total CO2 14 mmol/L (22-29) L 08/19/18 08:15 VBG O2 Saturation 97 % (70-80) H 08/19/18 08:15 VBG Base Excess mmol/L (-3-3) 08/19/18 08:15 Sodium 134 mmol/L (136-145) L 08/19/18 10:05 Potassium 3.8 mmol/L (3.5-5.1) D 08/19/18 10:05 Chloride 105 mmol/L (98-107) 08/19/18 10:05 Carbon Dioxide 16.0 mmol/L (21.0-32.0) L 08/19/18 10:05 Anion Gap 13.0 mmol/L (3-11) H 08/19/18 10:05 BUN 8 mg/dL (7-18) 08/19/18 10:05 Creatinine 0.82 mg/dL (0.70-1.30) 08/19/18 10:05 Estimated GFR/1.73 m2 >= 60.00 (mL/min/1.73m2) 08/19/18 10:05 Glucose 281 mg/dL (70-100) H 08/19/18 10:05 Lactate 1.4 mmol/l (0.6-1.4) 08/18/18 18:15 Calcium 7.9 mg/dL (8.5-10.1) L 08/19/18 10:05 Magnesium 1.6 mg/dL (1.8-2.4) L 08/19/18 10:05 Total Bilirubin 0.6 mg/dL (0.2-1.0) 08/18/18 18:15 AST 13 U/L (15-37) L 08/18/18 18:15 ALT 22 U/L (12-78) 08/18/18 18:15 Alkaline Phosphatase 123 U/L (46-116) H 08/18/18 18:15 Total Protein 8.0 g/dL (6.4-8.2) 08/18/18 18:15 Albumin 3.1 g/dL (3.4-5.0) L 08/18/18 18:15 Lipase 109 U/L (73-393) 08/18/18 18:15 TSH 1.21 uIU/mL (0.358-3.74) 08/18/18 18:15 Urine Color Yellow (Yellow) 08/18/18 18:55 Urine Clarity Clear 08/18/18 18:55 Urine pH 5.0 (5-8) 08/18/18 18:55 Ur Specific [place] 1.025 (1.005-1.025) 08/18/18 18:55 Urine Protein 30 mg/dL (Negative) H 08/18/18 18:55 Urine Ketones >=160 mg/dL (Negative) H 08/18/18 18:55 Urine Blood Small (Negative) H 08/18/18 18:55 Urine Nitrite Negative (Negative) 08/18/18 18:55 Urine Bilirubin Small (Negative) H 08/18/18 18:55 Urine Urobilinogen 0.2 EU/dL (Up TO 0.2) 08/18/18 18:55 Ur Leukocyte Esterase Negative (Negative) 08/18/18 18:55 Urine RBC 10-20 (0-2) H 08/18/18 18:55 Urine WBC >50 HPF (0-5) 08/18/18 18:55 Ur Epithelial Cells Negative HPF (Negative) 08/18/18 18:55 Urine Crystals Negative HPF (Negative) 08/18/18 18:55 Urine Bacteria Few HPF (Negative) 08/18/18 18:55 Urine Mucus Not Applicable 08/18/18 18:55 Urine Other Few renal (Negative) 08/18/18 18:55 Ur Culture Indicated? Yes 08/18/18 18:55 Urine Glucose 500 mg/dL (Negative) H 08/18/18 18:55 CXR 08/19/18: Normal chest. US renal 08/19/18: 1. No evidence of renal obstruction or nephrolithiasis. 2. Enlarged prostate gland.
--- NOTE | 2018-08-19 13:55 | NUR.NOTE ---
Several discussions have been had with Dr. Davey regarding the patient's variant blood glucose. [id number] 150ml/hr has been restarted and the drip set to 3ml/hr as that starts getting into his bloodstream to avoid delays without insulin coverage. The patient is asymptomatic and knows to alert me if he feels off at all. Nursing Note:
[2018-08-19] MEDS: Pantoprazole 40 MG TABCR PO (14:03)
[2018-08-19 14:10] LABS: Anion Gap 11.3 mmol/L (3-11); BUN 7 mg/dL (7-18); CO2 17.7 mmol/L (21.0-32.0); CREATININE 0.89 mg/dL (0.70-1.30); Calcium 8.4 mg/dL (8.5-10.1); Chloride 108 mmol/L (98-107); Glucose 136 mg/dL (70-100); Potassium 3.7 mmol/L (3.5-5.1); Sodium 137 mmol/L (136-145)
--- NOTE | 2018-08-19 14:58 | CHAPLAIN ---
Ricardo and I know each other from previous admissions. He was very drowsy when I visited this morning, more awake this afternoon, although still tired. Ricardo said he has moved to [place], [place] into an in-law apartment attached to his parents' home. He said the move was necessary for financial reasons. He said he came to [facility] for medical treatment because it would have been a much longer wait at the Hospital in [place], and he prefers to be here where he knows some of the staff. Ricardo is Roman [employer] and has started going the [facility]. He asked that we pray together, so we did.
--- NOTE | 2018-08-19 15:44 | PDOC.CMPRO ---
Care Management Progress Note VEENA was able to secure appointment for Ricardo at [facility] in [place], [place] with Dr. Segundo at 0900 on 08/27/18. VEENA notified ROBERT Woodard RN this information would be entered into the chart. [facility]: [place], [place] [address] [place] [address] P#[phone] or [phone]), ext [phone] F#[phone]
--- NOTE | 2018-08-19 15:55 | CMPROGNOTE_ITS ---
Care Management Progress Note VEENA was able to secure appointment for Ricardo at [facility] in [place], [place] with Dr. Segundo at 0900 on 08/27/18. VEENA notified ROBERT Woodard RN this information would be entered into the chart. [facility]: [place], [place] [address] [place] [address] P#[phone] or [phone]), ext [phone] F#[phone]
[2018-08-19] MEDS: Insulin Aspart 300 UNITS/3 ML PEN 100 UNITS SC (17:50)
[2018-08-19] MEDS: Insulin Aspart 300 UNITS/3 ML PEN SC (17:56)
[2018-08-19] MEDS: Tamsulosin 0.4 MG CAPCR PO (18:19)
[2018-08-19 18:27] LABS: Anion Gap 11.2 mmol/L (3-11); BUN 6 mg/dL (7-18); CO2 18.8 mmol/L (21.0-32.0); CREATININE 0.86 mg/dL (0.70-1.30); Calcium 8.3 mg/dL (8.5-10.1); Chloride 106 mmol/L (98-107); Glucose 249 mg/dL (70-100); Magnesium 1.8 mg/dL (1.8-2.4); Potassium 3.6 mmol/L (3.5-5.1); Sodium 136 mmol/L (136-145)
[2018-08-19] MEDS: cefTRIAXone 1 GM/50 ML BAG IVPB (21:14)
[2018-08-19] MEDS: Simvastatin 20 MG TAB PO (22:00)
[2018-08-19] MEDS: Cholecalciferol (Vitamin D3) 1,000 UNIT TAB 2000 UNITS PO (22:00)
[2018-08-19 22:30] LABS: Anion Gap 9.2 mmol/L (3-11); BUN 8 mg/dL (7-18); CO2 19.8 mmol/L (21.0-32.0); CREATININE 0.82 mg/dL (0.70-1.30); Calcium 8.2 mg/dL (8.5-10.1); Chloride 107 mmol/L (98-107); Glucose 181 mg/dL (70-100); Magnesium 1.8 mg/dL (1.8-2.4); Potassium 3.3 mmol/L (3.5-5.1); Sodium 136 mmol/L (136-145)
[2018-08-19] MEDS: Venlafaxine 150 MG CAPCR 300 MG PO (22:33)
[2018-08-19] MEDS: Zolpidem 10 MG TAB PO (22:33)
[2018-08-19] MEDS: oxyCODONE 10 MG TAB PO (22:38)
[2018-08-20] VITALS (19 sets, daily range): BP systolic 119–161; BP diastolic 66–133; PULSE 78–107; RESP 18–26; TEMP 35.9–36.8; O2SAT 95–97
[2018-08-20] MEDS: POTASSIUM CHLORIDE/0.9% NACL 1,000 ML 175 MEQ IV ×2 (02:35→09:30)
[2018-08-20 06:40] LABS: HCO3 (Venous) 20 mmol/L (22-28); O2 Sat (Venous) 98 % (70-80); TCO2 (Venous) 18 mmol/L (22-29); pCO2 (Venous) 35 mm/Hg (34-47); pH (Venous) 7.36 (7.32-7.43); pO2 (Venous) 93 mm/Hg (28-44)
[2018-08-20 06:44] LABS: Abs Immature Grans 0.04 k/cumm (0.0-0.09); Absolute Basophil Count 0.04 k/cumm (0.0-0.2); Absolute Eosinophil Count 0.11 k/cumm (0.0-0.7); Absolute Lymphocyte Count 1.19 k/cumm (1.2-3.4); Absolute Monocyte Count 0.51 k/cumm (0.11-0.7); Absolute Neutrophil Count 1.56 k/cumm (1.2-6.7); Basophils % 1.2; Eosinophils % 3.2; HCT 37.1 % (40.0-50.0); HGB 12.1 g/dL (13.5-17.5); Immature Grans % 1.2; Lymphocytes % 34.5; Mean Corp. HGB Concentration 32.6 g/dL (32.0-36.0); Mean Corpuscular Hemoglobin 26.5 pg (27.0-33.0); Mean Corpuscular Volume 81.4 fL (80-95); Monocytes % 14.8; Neutrophils % 45.1; Platelet Count 228 x1000/uL (130-400); RBC 4.56 m/cumm (4.50-6.00); RBC Distribution Width 15.3 % (11.8-14.1); White Blood Cell Count 3.45 k/cumm (4.4-10.8)
[2018-08-20 06:56] LABS: Anion Gap 11.3 mmol/L (3-11); BUN 6 mg/dL (7-18); CO2 21.7 mmol/L (21.0-32.0); CREATININE 0.69 mg/dL (0.70-1.30); Calcium 8.1 mg/dL (8.5-10.1); Chloride 108 mmol/L (98-107); Glucose 155 mg/dL (70-100); Magnesium 1.7 mg/dL (1.8-2.4); Potassium 3.5 mmol/L (3.5-5.1); Sodium 141 mmol/L (136-145)
--- NOTE | 2018-08-20 08:16 | CMPROGNOTE_ITS ---
Care Management Progress Note S/O: Ricardo remains pleasant in interaction. A: 47 year old male admitted to [facility] 08/18/18 for UTI, DKA P: Ricardo will return home when ready per MD. He will follow up with his new PCP in [place], [place] and transport home via private vehicle. CM continues to follow.
--- NOTE | 2018-08-20 08:37 | PDOC.CMDIS ---
LACE Index Scoring Tool - Questions: Length of Stay (in days): 2 Acuity (Admit via E.D.?): Yes Comorbidities: Diabetes w/o Complication E.D. Visits: 3 - Answers: Total Score: 9 Risk of Readmission: Low Risk Care Management Discharge Reason for Hospitalization: DKA Discharge Plan: Ricardo will return home when ready per MD. He will have new orders through [facility] in [place] for RN and [employer] services. [employer] central to relocation service connection, prescription cost support, DME equipment attainment and connection with new mental health prescribing provider as he reports he only has one refill left of these medications. Ricardo will transport via private vehicle with his parents. Patient/Family Education Needs: Review of discharge instructions, discuss Ask Me Three. Service resource review. Services Needed at Discharge: Home Health Care Services (RN, [employer]: [facility]. NEW PCP connection: Willie Segundo in [place], [place]. )
--- NOTE | 2018-08-20 09:02 | CMDISCH_ITS ---
LACE Index Scoring Tool - Questions: Length of Stay (in days): 2 Acuity (Admit via E.D.?): Yes Comorbidities: Diabetes w/o Complication E.D. Visits: 3 - Answers: Total Score: 9 Risk of Readmission: Low Risk Care Management Discharge Reason for Hospitalization: DKA Discharge Plan: Ricardo will return home when ready per MD. He will have new orders through [facility] in [place] for RN and [employer] services. [employer] central to relocation service connection, prescription cost support, DME equipment attainment and connection with new mental health prescribing provider as he reports he only has one refill left of these medications. Ricardo will transport via private vehicle with his parents. Patient/Family Education Needs: Review of discharge instructions, discuss Ask Me Three. Service resource review. Services Needed at Discharge: Home Health Care Services (RN, [employer] SALES: [facility]. NEW PCP connection: Willie Segundo in [place], [place]. )
[2018-08-20] MEDS: Pregabalin 50 MG CAP 150 MG PO ×2 (09:35→13:56)
[2018-08-20] MEDS: ARIPiprazole 15 MG TAB 30 MG PO (09:35)
[2018-08-20] MEDS: Potassium Chloride 20 MEQ TABCR PO ×2 (09:36→13:56)
[2018-08-20] MEDS: Cyanocobalamin 500 MCG TAB 1000 MCG PO (09:36)
[2018-08-20] MEDS: Propranolol 10 MG TAB PO ×2 (09:36→13:56)
[2018-08-20] MEDS: Finasteride 5 MG TAB PO (09:36)
[2018-08-20] MEDS: hydrOXYzine PAMOATE 25 MG CAP 50 MG PO ×2 (09:36→13:56)
[2018-08-20] MEDS: Pantoprazole 40 MG TABCR PO (09:37)
[2018-08-20] MEDS: Enoxaparin 40 MG/0.4 ML SYR SC (09:37)
[2018-08-20] MEDS: Normal Saline Flush 10 ML SYR (09:37)
[2018-08-20] MEDS: oxyCODONE 10 MG TAB PO ×2 (10:41→15:13)
[2018-08-20] MEDS: MAGNESIUM SULFATE 2 GM/50 ML BAG IVPB (10:42)
[2018-08-20] MEDS: clonazePAM 0.5 MG TAB PO (12:50)
--- NOTE | 2018-08-20 14:48 | DSE_ITS ---
Date of service: 08/20/18 Time of Service: 14:46 DS: Diagnosis Discharge Diagnosis (1) DKA (diabetic ketoacidoses): Status: Acute (2) Fever: Status: Acute (3) Urinary retention: Status: Acute (4) Type 2 diabetes mellitus with complication, with long-term current use of insulin: Status: Chronic (5) Hypokalemia: Status: Acute (6) Bipolar affective disorder in remission: Status: Acute (7) Gastroesophageal reflux disease: Status: Acute (8) Hypomagnesemia: Status: Acute (9) Bacteriuria, asymptomatic: Status: Acute Discharge Plan Disposition Patient Disposition: HOME W/HOME HEALTH SERVICE Condition: Improving Discharge Details Reason For Visit: UTI,DKA Admit Date/Time: 08/18/18 20:44 Admit Provider: Memo Lange Attending Provider: Memo Lange Primary Care Provider: Itzel Perkins Hospital Course Hospital Course: Mr Lozano is a 47 year old male with PMHx of IDDM2 with high insulin resistance, s/p L AKA, hypertension, hyperlipidemia, KAMARI, bipolar d/o admitted to [facility] ICU on 08/18/18 with DKA presumably due to gastroenteritis. He was treated with high dose insulin drip with overlap with lantus. His anion gap and acidosis have resolved by am of 08/20/18. He was able to tolerate PO and maintain reasonable blood sugars since being take off of insulin gtt. He did report dysuria on admission - UTI was ruled out with a negative UA (no evidence of nitrites or leucocyte esterase; while urine C&S grew Serratia, it is not employee representative of a true UTI and, rather, of colonization) - however, he was found to be retaining urine (>600 cc), likely explaining his symptoms. Gonzales catheter was placed. He was initiated on flomax and finasteride. He will be discharged home with a gonzales with home health nursing for gonzales catheter care, follow up with urology as outpatient, PCP. He would also benefit from TEST AND RESEARCH REACTOR OPERATOR via home health. Home Meds and New Rx's Prescriptions: New tamsulosin 0.4 mg Capsule 0.4 mg PO DAILY@1730 Qty: 30 RF: 0 finasteride 5 mg Tablet 5 mg PO DAILY Qty: 30 RF: 0 Continued diclofenac sodium 1 % gel 4 gm TP QID Qty: 400 RF: 3 oxycodone 10 mg tablet 10 mg PO TID MDD 3 tablets/day PRN (Reason: pain) 28 Days Qty: 84 RF: 0 30G Safety Needle See Rx Instructions .ROUTE .COMPLEX MDD 6 Qty: 200 RF: 6 pen needle, diabetic, safety 30 gauge x 3/16 needle .ROUTE .MEDSUPPLY Qty: 200 RF: 6 wheelchair device .ROUTE .MEDSUPPLY Qty: 1 RF: 0 naloxone 4 mg/actuation spray,non-aerosol 1 spray FRANCO ONCE PRN (Reason: opioid overdose) Qty: 2 RF: 0 aripiprazole [Abilify] 30 mg tablet 30 mg PO DAILY RF: 0 lamotrigine [Lamictal XR] 300 mg tablet extended release 24hr 300 mg PO DAILY RF: 0 Blood Glucose Test strip 1 ea Miscellaneous TID & PRN Qty: 400 RF: 12 zolpidem [Ambien] 10 MG tablet 10 mg PO HS Qty: 1 RF: 0 cyanocobalamin (vitamin B-12) [Vitamin B-12] 1,000 MCG tablet 1,000 mcg PO DAILY RF: 0 clonazepam 0.5 MG tablet 0.5 mg PO RF: 0 lancets 1 EACH misc 1 ea Miscellaneous TID Qty: 400 RF: 12 silver sulfadiazine 20 GM cream 20 gm Topical BID Qty: 1 RF: 1 prazosin 1 mg capsule 2 mg PO HS RF: 0 simvastatin 20 mg tablet 20 mg PO HS Qty: 90 RF: 3 Glucagon Emergency Kit (human) 1 mg recon soln 1 mg subcut ONCE Qty: 1 RF: 1 Lyrica 150 mg capsule 150 mg PO TID Qty: 270 RF: 1 V-GO 40 device .ROUTE .MEDSUPPLY Qty: 30 RF: 0 potassium chloride 20 mEq tablet extended release 20 meq PO BID Qty: 180 RF: 1 propranolol 10 mg tablet 10 mg PO TID Qty: 270 RF: 3 hydroxyzine pamoate [Vistaril] 50 mg capsule 50 mg PO TID Qty: 90 RF: 0 cholecalciferol (vitamin D3) 1,000 UNITS tablet 2,000 unit PO HS RF: 0 venlafaxine 150 MG capsule,extended release 24hr 300 mg PO HS Qty: 0 RF: 0 Humulin R U-500 (Conc) Kwikpen 500 unit/mL (3 mL) insulin pen 200 unit subcut TID RF: 0 Discharge Instructions Instructions: Diabetic Ketoacidosis (DC) Additional Instructions: Return to the hospital with any fever, bleeding, chest pain, or shortness of breath. Follow up with your PCP and with urology. Routine gonzales catheter care. Care Plan Goals: Home health nursing and TEST AND RESEARCH REACTOR OPERATOR. Referrals: Jett Vega MD [ [facility] STAFF PHYSICIAN] - (urinary retention; being discharged home with a gonzales catheter) Activity:: Activity as Tolerated Equipment/Supplies:: No Equipment Needed Diet:: Carb Counting Discharge Orders Discharge Orders: Discharge Order (Routine); Ordered 08/20/18 Ordered By: Rachel Davey Exam Narrative Exam Narrative: General: obese male, laying comfortably in bed, A&Ox3, not tachypneic, not in acute distress HEENT: EOMI, MMM Heart: RRR, no m/r/g Lungs: CTAB GI: abdomen is soft, nontender, nondistended Extremities: s/p L AKA; RLE with trace edema, very minimal erythema RLE (old healed cellulitis), no clubbing or cyanosis, +1 pedal pulse DS: Data Vitals/I&O Vitals and I&O: Vital Signs Temperature 36.0 C L 08/20/18 04:00 Temperature Source Temporal Artery Scan 08/20/18 04:00 Pulse 101 H 08/20/18 09:01 Pulse 104 H 08/20/18 09:01 Respiratory Rate 18 08/20/18 04:00 Respiratory Effort 08/20/18 04:00 Respiratory Depth Normal 08/20/18 04:00 Respiratory Pattern Normal 08/19/18 16:16 Blood Pressure 156/78 H 08/20/18 09:01 Blood Pressure Mean 96 08/20/18 09:01 Blood Pressure Position Sitting 08/20/18 04:00 Pulse Oximetry 97 08/20/18 04:00 Oxygen Delivery Method Room Air 08/20/18 04:00 Oxygen Flow Rate 0 08/20/18 04:00 Pain Level 5 08/20/18 10:41 Intake & Output 08/19/18 08/20/18 08/20/18 23:59 11:59 23:59 Intake Total 1294.450 / 7586.117 410 / 410 Output Total 4200 / 6225 550 / 550 Balance -2905.550 / 1361.117 -140 / -140 Intake: IV 1294.450 / 5136.117 50 / 50 Oral 360 / 360 Output: Urine 4200 / 6225 550 / 550 Other: Urine Color Light Tamiko Light Tamiko Urine Appearance Clear Comment Pt has put out 2600ml since 0730 Pt has put out 2600ml since 0730 Completed studies during hospitalization [Text1]: CXR 08/19/18: Normal chest. US abdomen 08/19/18: 1. No evidence of renal obstruction or nephrolithiasis. 2. Enlarged prostate gland. Labs on day of discharge: Labs from last 24 hours 08/20/18 08/20/18 08/20/18 06:25 06:25 06:25 WBC 3.45 L RBC 4.56 Hgb 12.1 L Hct 37.1 L MCV 81.4 MCH 26.5 L MCHC 32.6 RDW 15.3 H Plt Count 228 MPV 9.0 Immature Gran % 1.2 Neutrophils % 45.1 Lymphocytes % 34.5 Monocytes % 14.8 Eosinophils % 3.2 Basophils % 1.2 Absolute Neutrophils 1.56 Absolute Lymphocytes 1.19 L Absolute Monocytes 0.51 Absolute Eosinophils 0.11 Absolute Basophils 0.04 VBG pH VBG pCO2 VBG pO2 VBG HCO3 VBG Total CO2 VBG O2 Saturation VBG Base Excess Sodium 141 Potassium 3.5 Chloride 108 H Carbon Dioxide 21.7 Anion Gap 11.3 H BUN 6 L Creatinine 0.69 L Estimated GFR/1.73 m2 >= 60.00 Glucose 155 H Calcium 8.1 L Magnesium 1.7 L Prostate Specific Ag Pending 08/20/18 08/19/18 08/19/18 06:15 22:10 18:10 WBC RBC Hgb Hct MCV MCH MCHC RDW Plt Count MPV Immature Gran % Neutrophils % Lymphocytes % Monocytes % Eosinophils % Basophils % Absolute Neutrophils Absolute Lymphocytes Absolute Monocytes Absolute Eosinophils Absolute Basophils VBG pH 7.36 VBG pCO2 35 VBG pO2 93 H VBG HCO3 20 L VBG Total CO2 18 L VBG O2 Saturation 98 H VBG Base Excess Sodium 136 136 Potassium 3.3 L 3.6 Chloride 107 106 Carbon Dioxide 19.8 L 18.8 L Anion Gap 9.2 11.2 H BUN 8 6 L Creatinine 0.82 0.86 Estimated GFR/1.73 m2 >= 60.00 >= 60.00 Glucose 181 H 249 H D Calcium 8.2 L 8.3 L Magnesium 1.8 1.8 Prostate Specific Ag Preliminary micro results at discharge 08/18/18 19:15 Blood Culture - Preliminary Blood NO GROWTH 24 HOURS 08/18/18 19:13 Blood Culture - Preliminary Blood NO GROWTH 24 HOURS PFSH Medical History Back pain Benign hypertension Bipolar disorder Depression Diabetes mellitus, type 2 Erectile dysfunction GERD (gastroesophageal reflux disease) History of nephrolithiasis Hyperlipidemia 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 Social History Smoking/Tobacco Use Status: Never Alcohol Intake: never Drug use: Never Substance use type: does not use Household members: spouse Housing: house What is your relationship status?: Panel score (0-1 are the most socially isolated patients): 1 What type of physical activity do you participate in: none Working smoke detector in home: Yes Fire extinguisher in home: Yes Carbon monox detector in home: Yes Do you feel safe at home: Yes Do you feel safe in your relationship?: Yes
--- NOTE | 2018-08-20 15:12 | HHF2F_ITS ---
1. Encounter Date and Reason I certify that CHARLENE MARSHALL was seen by Rachel Davey on 08/20/18 and that I had a [id number] encounter with this patient that meets the physician face to face encounter requirements. 2. Clinical Findings Supporting Skilled Need and Homebound Status I certify that home health services are medically necessary, include either intermittent [place] [facility] and/or physical/speech therapy, and that this patient is homebound in that absences from the home require considerable and taxing effort and are infrequent or of short duration, or are attributable to the need to receive medical care. [X] (a) Attached documentation from encounter provides clinical findings supporting skilled need and homebound status (including what assistance patient requires to leave the home). The encounter with the patient was in whole, or in part, for the following medical condition, which is the primary reason for home health care: UTI,DKA Chcf: IDDM2, urinary retention s/p gonzales COMPENSATION AND BENEFITS ADVISOR: assess needs for durable equipment/services at home Homebound: unable to leave home with assistance 3. Certification and Authentication I certify that I composed the above information based on my clinical judgement relating to this patient's medical condition and, if applicable, clinical findings communicated to me by the NPP or inpatient physician who performed the Home Health Referral. All further orders will be obtained through ____Dr Segundo (Community Based Physician - PCP)
--- NOTE | 2018-08-20 16:47 | W.UROLOGYCON ---
Date of service: 08/20/18 Time of Service: 16:29 History of Present Illness Narrative: Chief complaint: Urinary retention This is a 47-year-old gentleman who describes progressive difficulty emptying his bladder. He estimates that this is been an issue for him over the past 6 months at least area he has never received medical or surgical treatments for this issue. He has a history of diabetes mellitus. He was admitted with metabolic acidosis area he had been having frequency and dysuria. He had a urine culture that grew Serratia. He had negative blood cultures. During the course of his hospitalization, he was able to void. He was found to have high postvoid residual urines on bladder scan. A Loredo catheter was placed. He was started on a combination of tamsulosin and finasteride just yesterday. As I see him this afternoon, he is getting ready for discharge with his Loredo in place He has a history of kidney stones, but has not had any prior urologic surgery. 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 Social History Smoking/Tobacco Use Status: Never Alcohol Intake: never Drug use: Never Substance use type: does not use Household members: spouse Housing: house What is your relationship status?: Panel score (0-1 are the most socially isolated patients): 1 What type of physical activity do you participate in: none Working smoke detector in home: Yes Fire extinguisher in home: Yes Carbon monox detector in home: Yes Do you feel safe at home: Yes Do you feel safe in your relationship?: Yes Exam Narrative Exam Narrative: He is seen sitting at the bedside. He seems to be dozing off intermittently as we speak but he is easily arousable. His vital signs are documented elsewhere in the chart He is obese A Loredo catheter is in place and is draining clear urine He is status post left AKA He is oriented x3 Results Last Vital Signs Temp 36.3 C L 08/20/18 15:15 Pulse 83 08/20/18 15:06 Resp 19 08/20/18 15:07 BP 133/78 08/20/18 15:06 Pulse Ox 96 08/20/18 15:07 Labs : 08/20/18 06:25 08/20/18 06:25 Laboratory Results - last 24 hr 08/19/18 08/19/18 08/20/18 18:10 22:10 06:15 WBC RBC Hgb Hct MCV MCH MCHC RDW Plt Count MPV Immature Gran % Neutrophils % Lymphocytes % Monocytes % Eosinophils % Basophils % Absolute Neutrophils Absolute Lymphocytes Absolute Monocytes Absolute Eosinophils Absolute Basophils VBG pH 7.36 VBG pCO2 35 VBG pO2 93 H VBG HCO3 20 L VBG Total CO2 18 L VBG O2 Saturation 98 H VBG Base Excess Sodium 136 136 Potassium 3.6 3.3 L Chloride 106 107 Carbon Dioxide 18.8 L 19.8 L Anion Gap 11.2 H 9.2 BUN 6 L 8 Creatinine 0.86 0.82 Estimated GFR/1.73 m2 >= 60.00 >= 60.00 Glucose 249 H D 181 H Calcium 8.3 L 8.2 L Magnesium 1.8 1.8 08/20/18 08/20/18 06:25 06:25 WBC 3.45 L RBC 4.56 Hgb 12.1 L Hct 37.1 L MCV 81.4 MCH 26.5 L MCHC 32.6 RDW 15.3 H Plt Count 228 MPV 9.0 Immature Gran % 1.2 Neutrophils % 45.1 Lymphocytes % 34.5 Monocytes % 14.8 Eosinophils % 3.2 Basophils % 1.2 Absolute Neutrophils 1.56 Absolute Lymphocytes 1.19 L Absolute Monocytes 0.51 Absolute Eosinophils 0.11 Absolute Basophils 0.04 VBG pH VBG pCO2 VBG pO2 VBG HCO3 VBG Total CO2 VBG O2 Saturation VBG Base Excess Sodium 141 Potassium 3.5 Chloride 108 H Carbon Dioxide 21.7 Anion Gap 11.3 H BUN 6 L Creatinine 0.69 L Estimated GFR/1.73 m2 >= 60.00 Glucose 155 H Calcium 8.1 L Magnesium 1.7 L Assessment and Plan (1) Urinary retention: Current visit: No Status: Acute In reviewing this gentlemen's medical history, he has a number of risk factors for urinary retention. These risks include diabetes and psychiatric medications as well as an obstructive process. Of these possible etiologies, the obstructive process is the one we are able to treat most easily, so I think it is reasonable to start there. He was just started on tamsulosin yesterday and finasteride today. We generally recommend voiding trial after a minimum of 3 days of the alpha-sisi. He will be going home with a catheter in place. I have asked him to give our office call tomorrow so that we can coordinate an appointment to have his catheter removed early next week followed by a recheck later that afternoon to ensure his bladder is emptying.
[2018-08-20] MEDS: Tamsulosin 0.4 MG CAPCR PO (17:22)
[2018-08-21 10:10] LABS: PSA, Diagnostic 6.7 ng/ml (0-2.5)
== END 2018-08-20 17:45 | disposition home health service (06) | DRG 638 ==
LOC: ER 21:34 → ICU 21:52
PROVIDERS: Admitting Provider General Practice; Emergency Provider Student in an Organized Health Care Education/Training Program; PCP Student in an Organized Health Care Education/Training Program; Visit Provider Internal Medicine
DX: E11.10 Type 2 diabetes mellitus with ketoacidosis without coma (principal); E87.2 Acidosis; E83.42 Hypomagnesemia; R82.71 Bacteriuria; K52.9 Noninfective gastroenteritis and colitis, unspecified; R11.2 Nausea with vomiting, unspecified; N40.1 Benign prostatic hyperplasia with lower urinary tract symptoms; R33.8 Other retention of urine; R50.9 Fever, unspecified; E87.6 Hypokalemia; F31.70 Bipolar disorder, currently in remission, most recent episode unspecified; I10 Essential (primary) hypertension; K21.9 Gastro-esophageal reflux disease without esophagitis; Z79.4 Long term (current) use of insulin; Z87.442 Personal history of urinary calculi; Z89.612 Acquired absence of left leg above knee
CPT/HCPCS: 36415; 36416; 76770; 80048; 80051; 80053; 82805; 82962; 83690; 87040; 87077; 93005; 96361; 96365; 96366; 99222; 99233; 99239; 99252; 99285; J1650; 71045; 81003; 81015; 83605; 83735; 84153; 84443; 85025; 85610; 85730; 87086; 87186; 93010; 99284; J0696; J3480

== ENCOUNTER → 2018-08-25 07:54 | Outpatient (BNVA) | payer MEDICARE, SELFPAY | PROVIDERS: PCP Student in an Organized Health Care Education/Training Program; Visit Provider Urology | DX: R33.9 Retention of urine, unspecified (principal); R82.71 Bacteriuria; R97.20 Elevated prostate specific antigen [PSA]; E11.9 Type 2 diabetes mellitus without complications; I10 Essential (primary) hypertension | CPT/HCPCS: 99212; 99213 ==

== ENCOUNTER 2018-09-30 13:54 | Outpatient (REF) | payer MEDICARE, SELFPAY ==
[2018-10-05 22:47] LABS: 6-monoacetylmorphine Not Detected ng/mL (Cutoff: 25); Amphetamines Negative ng/mL (Cutoff: 500); Barbiturates Negative ng/mL (Cutoff: 200); Benzodiazepines Negative ng/mL (Cutoff: 100); Buprenorphine Not Detected ng/mL (Cutoff: 5); Cocaine Negative ng/mL (Cutoff: 150); Codeine Not Detected ng/mL (Cutoff: 25); Comment Normal; Creatinine, U 44.4 mg/dL; Dihydrocodeine Not Detected ng/mL (Cutoff: 25); EDDP Not Detected ng/mL (Cutoff: 25); Fentanyl Not Detected ng/mL (Cutoff: 2); Hydrocodone Not Detected ng/mL (Cutoff: 25); Hydromorphone Not Detected ng/mL (Cutoff: 25); Hydromorphone-3-beta-glucuroni Not Detected ng/mL (Cutoff: 100); Meperidine Not Detected ng/mL (Cutoff: 25); Methadone Not Detected ng/mL (Cutoff: 25); Morphine Not Detected ng/mL (Cutoff: 25); N-desmethyltapentadol Not Detected ng/mL (Cutoff: 50); Naloxone Not Detected ng/mL (Cutoff: 25); Norbuprenorphine Not Detected ng/mL (Cutoff: 5); Norfentanyl Not Detected ng/mL (Cutoff: 2); Norhydrocodone Not Detected ng/mL (Cutoff: 25); Normeperidine Not Detected ng/mL (Cutoff: 25); Noroxycodone Not Detected ng/mL (Cutoff: 25); Noroxymorphone Not Detected ng/mL (Cutoff: 25); O-desmethyltramadol Not Detected ng/mL (Cutoff: 25); Phencyclidine Negative ng/mL (Cutoff: 25); Propoxyphene Not Detected ng/mL (Cutoff: 25); Specific Gravity 1.004; Tapentadol Not Detected ng/mL (Cutoff: 25); Tetrahydrocannabinol Negative ng/mL (Cutoff: 50); Tramadol Not Detected ng/mL (Cutoff: 25); pH 6.5
== END 2018-09-30 14:14 ==
LOC: LBN 13:54
PROVIDERS: PCP Nurse Practitioner Family; Visit Provider Nurse Practitioner Family
DX: G89.29 Other chronic pain (principal); G54.6 Phantom limb syndrome with pain; Z89.612 Acquired absence of left leg above knee; Z79.891 Long term (current) use of opiate analgesic
CPT/HCPCS: 80307; 80364

== ENCOUNTER 2018-10-27 12:35 | Inpatient (IN) | payer OTHER, SELFPAY ==
[2018-10-27] VITALS (76 sets, daily range): BP systolic 120–168; BP diastolic 50–83; PULSE 107–128; RESP 9–48; TEMP 36.8–38.7; O2SAT 88–98
[2018-10-27] MEDS: Normal Saline 1,000 ML 1000 ML IV ×2 (12:55→16:55)
[2018-10-27 13:03] LABS: BE (Venous) -0.5 mmol/L (-3-3); HCO3 (Venous) 24 mmol/L (22-28); O2 Sat (Venous) 95 % (70-80); TCO2 (Venous) 22 mmol/L (22-29); pCO2 (Venous) 37 mm/Hg (34-47); pH (Venous) 7.42 (7.32-7.43); pO2 (Venous) 76 mm/Hg (28-44)
[2018-10-27 13:04] LABS: Abs Immature Grans 0.01 k/cumm (0.0-0.09); Absolute Basophil Count 0.04 k/cumm (0.0-0.2); Absolute Eosinophil Count 0.14 k/cumm (0.0-0.7); Absolute Lymphocyte Count 0.53 k/cumm (1.2-3.4); Absolute Monocyte Count 0.55 k/cumm (0.11-0.7); Absolute Neutrophil Count 6.11 k/cumm (1.2-6.7); Basophils % 0.5; Eosinophils % 1.9; HCT 38.5 % (40.0-50.0); Immature Grans % 0.1; Lymphocytes % 7.2; Mean Corp. HGB Concentration 33.8 g/dL (32.0-36.0); Mean Corpuscular Hemoglobin 26.9 pg (27.0-33.0); Mean Corpuscular Volume 79.5 fL (80-95); Mean Platelet Volume 9.2 fL (8.0-11.0); Monocytes % 7.5; Neutrophils % 82.8; Platelet Count 206 x1000/uL (130-400); RBC 4.84 m/cumm (4.50-6.00); RBC Distribution Width 14.3 % (11.8-14.1); White Blood Cell Count 7.38 k/cumm (4.4-10.8)
--- NOTE | 2018-10-27 13:04 | W.ED.GENAD ---
Discharge Plan Disposition Patient Disposition: [facility] INPATIENT Condition: Serious Discharge Details Chief Complaint: Diabetes Clinical Impression: Pyelonephritis Admit Date/Time: 10/27/18 19:26 Admit Provider: Memo Lange Attending Provider: Memo Lange Primary Care Provider: Mariluz Oliveira ED Provider: Rashad Colon Discharge Data Discharge Date/Time-TO BE ENTERED AT DEPARTURE: 10/27/18 20:50 Medical Decision Making <Angelito Pretty NP - Last Filed: 10/28/18 17:31> Patient presenting the emergency department for chief complaint of not feeling well. Patient states that he noted his sugars to be elevated this morning greater than 500. Patient called his primary care office which sent him to the hospital. Patient does live in [place] but prefers our facility so drove here with his mother. Patient does state that he has been having some irritation with urination but mostly at the tip of his penis. Patient states chills and sweating that began last night and this morning started having flank pain. Patient is diaphoretic and ill-appearing with tachycardia, non-hypotensive. Exam does show bilateral CVA tenderness, no abdominal pain, otherwise unremarkable exam. Plan to check labs, give IV fluids. Fingerstick sugar was 417 so 10U iv was given Review of labs show anemia without leukocytosis, VBG showing patient is not acidotic, slightly low sodium and elevated anion gap with sugar of 424, otherwise normal renal function. Patient does have slightly low mag of 1.7. Urinalysis does show moderate amount of blood and nitrates along with leukocyte esterase with greater than 50 WBCs. Patient has urine glucose and 80 mg of the urine ketones. Given CVA tenderness, chills, and diaphoresis there is possible concern for pyelonephritis. Plan to give patient more fluids given that he remains tachycardic and Rocephin for infection. Spoke to hospitalist about patient's condition and she said she would not accept patient until CT imaging was done to rule out infected stones. ECG Data Attestation: I personally reviewed and interpreted this ECG (s) as follows: Prior ECG tracings: available for review Interpretation: Reviewed with Dr. John meyers. Shows sinus tachycardia, rate of 118, no [facility], nondiagnostic <Rashad Colon MD - Last Filed: 10/28/18 02:38> Patient seen during code black resulting in delayed documentation. Patient seen during time of ED surge. Care signed out by ABEL Pretty at 1600 -please see his documentation regarding initial ED presentation and course. Patient has pyelonephritis and has been given IV antibiotics. Plan at signout was to follow-up on CT of the abdomen pelvis to rule out septic stone as requested by Dr. Davey. If no renal stone present, plan to admit for continued IV antibiotics. I assessed the patient shortly after signout and patient was noted to be tachycardic, normotensive, mentating well. Patient received 1 L of crystalloid. An additional 1 L of crystalloid was administered and patient was started on continuous IV fluids. Nursing noted the patient was due for and requesting his oxycodone 10 mg which he takes at home. Patient administered oxycodone 10 mg. Patient's tachycardia did improve. Patient was not hypotensive. CT the abdomen pelvis was interpreted by radiology:IMPRESSION: 1. There no radiopaque calculi visible. There is slight dilatation of the left ureter. Perhaps there has been a recently passed small stone that is no longer in the bladder. 2. Severe distention of the urinary bladder 2 1250 cubic centimeters I spoke with Dr. Lange who will admit the patient. Care transition to Dr. Lange at time of admission. HPI <Angelito Pretty NP - Last Filed: 10/28/18 17:31> General Mode of arrival: ambulatory. Date/Time Provider Initiated Documentation: 10/27/18 12:46. Limitations to Documentation: no limitations. Information obtained by: patient and RN notes reviewed. History of Present Illness 48 year old M presents to the emergency department with the chief complaint of high blood sugar and malaise, described as moderate, with intensity rated at 7. Quality is described as aching, and is localized to the back (Bilateral flank pain). Patient started experiencing this day(s) (3) No exacerbating factors reported . Patient did receive the following treatments prior to arrival, none Related Data Home Medications Medication Instructions Recorded Confirmed cholecalciferol (vitamin D3) 2,000 unit PO HS 05/21/12 09/30/18 zolpidem [Ambien] 10 mg PO HS #1 09/03/13 10/27/18 cyanocobalamin (vitamin B-12) 1,000 mcg PO DAILY 12/21/14 10/27/18 [Vitamin B-12] venlafaxine 300 mg PO HS #0 11/27/15 10/27/18 clonazepam 0.5 mg PO 04/16/17 09/30/18 lancets #400 ea 08/14/17 09/30/18 silver sulfadiazine 20 gm TOPICAL BID #1 bottle 10/31/17 10/27/18 diclofenac sodium 1 % topical gel 4 gm TP QID #400 gm 12/11/17 10/27/18 prazosin 1 mg capsule 2 mg PO HS cap 12/11/17 10/27/18 wheelchair #1 each 12/26/17 09/30/18 30G Safety Needle See Rx Instructions .ROUTE 01/14/18 09/30/18 .COMPLEX #200 unit MDD 6 pen needle, diabetic, safety 30 #200 each 01/14/18 09/30/18 gauge x 3/16 naloxone 4 mg/actuation nasal spray 1 spray FRANCO ONCE PRN #2 each 01/15/18 10/27/18 simvastatin 20 mg tablet 20 mg PO HS #90 tab 03/19/18 10/27/18 Blood Glucose Test #400 strip 04/15/18 09/30/18 aripiprazole 30 mg tablet 30 mg PO DAILY 04/15/18 10/27/18 lamotrigine 300 mg tablet,extended 300 mg PO DAILY 04/15/18 10/27/18 release 24 hr glucagon (human recombinant) 1 mg 1 mg SUBCUT ONCE #1 each 04/19/18 10/27/18 solution for injection pregabalin 150 mg capsule 150 mg PO TID #270 cap 04/23/18 10/27/18 sub-q insulin device, 40 unit #30 each 06/05/18 09/30/18 potassium chloride 20 mEq 20 meq PO BID #180 tab 06/11/18 10/27/18 tablet,extended release propranolol 10 mg tablet 10 mg PO TID #270 tab-cap 07/08/18 10/27/18 hydroxyzine pamoate 50 mg capsule 50 mg PO TID #90 cap 07/15/18 10/27/18 Humulin R U-500 (Conc) Kwikpen 200 unit SUBCUT TID 08/18/18 10/27/18 finasteride 5 mg PO DAILY #30 tab 08/20/18 10/27/18 tamsulosin 0.4 mg PO DAILY@1730 #30 cap 08/20/18 10/27/18 aspirin [Aspir-81] 81 mg PO DAILY 09/02/18 10/27/18 ciprofloxacin HCl 750 mg tablet 750 mg PO DAILY tab 09/30/18 10/27/18 oxycodone 10 mg tablet 10 mg PO TID PRN 28 Days #84 tab 10/28/18 MDD 3 tablets/day Previous Rx's Medication Instructions Recorded venlafaxine 300 mg PO HS #0 11/27/15 lancets #400 ea 08/14/17 silver sulfadiazine 20 gm TOPICAL BID #1 bottle 10/31/17 diclofenac sodium 1 % topical gel 4 gm TP QID #400 gm 12/11/17 wheelchair #1 each 12/26/17 30G Safety Needle See Rx Instructions .ROUTE 01/14/18 .COMPLEX #200 unit MDD 6 pen needle, diabetic, safety 30 #200 each 01/14/18 gauge x 3/16 naloxone 4 mg/actuation nasal spray 1 spray FRANCO ONCE PRN #2 each 01/15/18 simvastatin 20 mg tablet 20 mg PO HS #90 tab 03/19/18 Blood Glucose Test #400 strip 04/15/18 glucagon (human recombinant) 1 mg 1 mg SUBCUT ONCE #1 each 04/19/18 solution for injection pregabalin 150 mg capsule 150 mg PO TID #270 cap 04/23/18 sub-q insulin device, 40 unit #30 each 06/05/18 potassium chloride 20 mEq 20 meq PO BID #180 tab 06/11/18 tablet,extended release propranolol 10 mg tablet 10 mg PO TID #270 tab-cap 07/08/18 hydroxyzine pamoate 50 mg capsule 50 mg PO TID #90 cap 07/15/18 finasteride 5 mg PO DAILY #30 tab 08/20/18 tamsulosin 0.4 mg PO DAILY@1730 #30 cap 08/20/18 oxycodone 10 mg tablet 10 mg PO TID PRN 28 Days #84 tab 10/28/18 MDD 3 tablets/day Allergies Allergy/AdvReac Type Severity Reaction Status Date / Time quetiapine fumarate Allergy Severe suicidal Verified 09/30/18 13:32 [From Seroquel] vancomycin Allergy Severe Anaphylaxsi Verified 09/30/18 13:32 s venom-honey bee Allergy Severe anaphylacti Verified 09/30/18 13:32 [bee venom (honey bee)] c carbamazepine AdvReac Severe psychosis,s Verified 09/30/18 13:32 uicidal fluoxetine HCl [From Symbyax] AdvReac Severe jaundice Verified 09/30/18 13:32 olanzapine [From Symbyax] AdvReac Severe jaundice Verified 09/30/18 13:32 General Stated Complaint: Diabetes DAVONTE: 2 Review of Systems <Angelito Pretty NP - Last Filed: 10/28/18 17:31> Constitutional Reports chills, Denies fever(s) and Denies night sweats Cardiovascular Denies chest pain and Denies dyspnea Respiratory Denies cough and Denies dyspnea Gastrointestinal Reports as per HPI, Denies abdominal pain, Denies melena, Denies change in bowel habits, Denies constipation, Denies diarrhea, Reports nausea and Denies vomiting Genitourinary Denies hematuria, Denies difficulty urinating, Reports flank pain, Denies penile discharge, Reports urinary frequency, Reports urinary hesitancy and Reports urinary urgency Integumentary/Breasts Denies rash PFSH <Angelito Pretty NP - Last Filed: 10/28/18 17:31> Medical History Back pain Benign hypertension Bipolar disorder Depression Diabetes mellitus, type 2 Erectile dysfunction GERD (gastroesophageal reflux disease) History of nephrolithiasis Hyperlipidemia 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 Social History Smoking/Tobacco Use Status: Never Alcohol Intake: never Drug use: Never Substance use type: does not use Household members: spouse Housing: house What is your relationship status?: Panel score (0-1 are the most socially isolated patients): 1 What type of physical activity do you participate in: none Working smoke detector in home: Yes Fire extinguisher in home: Yes Carbon monox detector in home: Yes Do you feel safe at home: Yes Do you feel safe in your relationship?: Yes Exam <Angelito Pretty NP - Last Filed: 10/28/18 17:31> Const General: cooperative Orientation: alert, awake and oriented x3 Resp Effort & Inspection: normal respiratory effort and able to speak in complete sentences Auscultation: clear to auscultation bilaterally Cardio Rate: tachycardic Rhythm: regular rhythm Heart Sounds: S1 normal, S2 normal, no click, no gallops, no murmurs and no rubs GI Inspection: obesity Palpation: soft, no hepatosplenomegaly, not firm, no guarding, no masses, no pulsatile masses, not rigid, no splenomegaly and tender Auscultation: normal bowel sounds Back/Spine/Pelvis Back: CVA tenderness (bilateral) Neuro General: alert, awake, oriented x3, gait normal and moves all extremities Extrem General: amputation noted Above the knee: left Course <Angelito Pretty NP - Last Filed: 10/28/18 17:31> Vital Signs Temperature 36.8 C 10/27/18 12:49 Pulse 122 H 10/27/18 12:49 Respiratory Rate 28 H 10/27/18 12:49 Temperature 36.8 C 10/27/18 12:49 Temperature Source Oral 10/27/18 12:49 Pulse 122 H 10/27/18 12:49 Respiratory Rate 28 H 10/27/18 12:49 Sign Out <Angelito Pretty NP - Last Filed: 10/28/18 17:31> Sign Out Data: Sign Out Comment: Patient pending renal CT for concern of pyelonephritis otherwise plan for patient to be admitted for IV antibiotics Last updated by Angelito Pretty NP at 10/27/18 16:29
[2018-10-27] MEDS: Insulin REGULAR-Human 100 UNITS/ML UNIT 10 UNITS IV (13:06)
[2018-10-27 13:08] LABS: Lactate 1.9 mmol/L (0.6-1.4)
[2018-10-27 13:15] LABS: Magnesium 1.7 mg/dL (1.8-2.4)
[2018-10-27 13:26] LABS: ALT 31 U/L (12-78); AST 17 U/L (15-37); Albumin 3.6 g/dL (3.4-5.0); Alkaline Phosphatase 154 U/L (46-116); Anion Gap 14.1 mmol/L (3-11); BUN 13 mg/dL (7-18); Bilirubin, Total 0.8 mg/dL (0.2-1.0); CO2 22.9 mmol/L (21.0-32.0); CREATININE 0.98 mg/dL (0.70-1.30); Chloride 98 mmol/L (98-107); Glucose 424 mg/dL (70-100); Potassium 3.9 mmol/L (3.5-5.1); Sodium 135 mmol/L (136-145); Total Protein 8.2 g/dL (6.4-8.2)
[2018-10-27 14:14] LABS: Bilirubin Negative (Negative); Blood Moderate (Negative); Clarity Clear (Clear); Glucose 500 mg/dL (Negative); Ketones 80 mg/dL (Negative); Leukocyte Esterase Small (Negative); Nitrite Positive (Negative); Specific Gravity <= 1.005 (1.005-1.025); Urobilinogen 0.2 EU/dL (Up TO 0.2); pH 5.5 (5-8)
[2018-10-27 14:43] LABS: WBC >50 HPF (0-5)
[2018-10-27 14:44] LABS: C & S Indicated? Yes
[2018-10-27] MEDS: cefTRIAXone 1 GM/50 ML BAG IVPB (15:05)
--- NOTE | 2018-10-27 15:35 | DI.CT_ITS ---
SYMPTOMS/DIAGNOSIS: FLANK PAIN RENAL COLIC CT: Images were performed from the lung bases through the ischial tuberosities without IV or oral contrast. The liver shows severe fatty infiltration. No biliary dilatation is seen. The spleen is normal in size. The gallbladder shows no evidence of abnormal distention or calcified stones. The pancreas and adrenals appear normal. The urinary bladder is quite distended. No bladder calculi or bladder mass is seen. The prostate appears normal in size. No renal or ureteral calculi are identified. There is minimal prominence of the renal pelves and ureters likely secondary to an overdistended bladder. There is a moderate quantity of stool. Diverticula are noted in the descending and sigmoid colon. IMPRESSION: Markedly distended urinary bladder. No urinary tract calculi are seen. Fatty infiltration of the liver and diverticulosis are also noted.
--- NOTE | 2018-10-27 17:03 | DI.VRAD_ITS ---
EXAM: CT Abdomen and Pelvis Without Contrast EXAM DATE/TIME: 10/27/2018 3:36 PM CLINICAL HISTORY: 48 years old, male; Other: Flank pain TECHNIQUE: Imaging protocol: Axial computed tomography images of the abdomen and pelvis without contrast. Coronal and sagittal reformatted images were created and reviewed. Radiation optimization: All CT scans at this facility use at least one of these dose optimization techniques: automated exposure control; mA and/or kV adjustment per patient size (includes targeted exams where dose is matched to clinical indication); or iterative reconstruction. COMPARISON: US renal 08/19/2018 10:29 AM FINDINGS: Liver: Normal. No mass. Gallbladder and bile ducts: Normal. No calcified stones. No ductal dilation. Pancreas: Normal. No ductal dilation. Spleen: Normal. No splenomegaly. Adrenals: Normal. No mass. Kidneys and ureters: No calculi are visible in either kidney. The left renal pelvis is slightly larger than the right. The left ureter is mildly dilated in its midportion especially but no calculus is seen. Stomach and bowel: There several diverticula in the left colon but no surrounding inflammation. Appendix: No evidence of appendicitis. Intraperitoneal space: Normal. No free air. No significant fluid collection. Vasculature: Normal. No abdominal aortic aneurysm. Lymph nodes: Normal. No enlarged lymph nodes. Bladder: No calculus is seen within the urinary bladder. The bladder is moderately distended measuring 15 x 10 x 17 cm for approximate volume of 1250 cubic centimeters. Reproductive: Seminal vesicles are normal. The prostate gland is minimally enlarged. Bones/joints: There is mild multilevel discogenic disease most prominent at L4-5. Soft tissues: Unremarkable. Other findings: Morbid obesity is noted. IMPRESSION: 1. There no radiopaque calculi visible. There is slight dilatation of the left ureter. Perhaps there has been a recently passed small stone that is no longer in the bladder. 2. Severe distention of the urinary bladder 2 1250 cubic centimeters Dictated and Authenticated by: John Alexander MD. Ordering:WESTLEY Eaton MD
[2018-10-27] MEDS: oxyCODONE 10 MG TAB PO (17:19)
--- NOTE | 2018-10-27 19:13 | HPE_ITS ---
Date of service: 10/27/18 Time of Service: 19:14 Assessment and Plan (1) UTI (urinary tract infection): Current visit: Yes Status: Acute UTI, clinical features suggest possible pyelo though no CT evidence of such. All in setting of chronic retention. Will continue Rocephin pending culture results. Will continue usual meds as is with excception of adding sliding scale coverage to usual high dose insulin. History of Present Illness Chief Complaint: weakness Narrative: 48 male with MMP including DM and chronic urinary retention. here with dysuria, left fllank pain, fever and genralized weakness.. In ER patient reports fever, though I do not see temp recorded. Pyuria noted, CT negative for stone, possible slight hydro left, and bladder > 1000 cc. Sugar 424.Rocephin given along woth 10 units insulin and patient admitted for further management. patient says he feels pretty well right noww and is asking about going home. 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 Social History Smoking/Tobacco Use Status: Never Alcohol Intake: never Drug use: Never Substance use type: does not use Household members: spouse Housing: house What is your relationship status?: Panel score (0-1 are the most socially isolated patients): 1 What type of physical activity do you participate in: none Working smoke detector in home: Yes Fire extinguisher in home: Yes Carbon monox detector in home: Yes Do you feel safe at home: Yes Do you feel safe in your relationship?: Yes Meds Home Medications Medication Instructions Recorded Confirmed Type cholecalciferol (vitamin D3) 2,000 unit PO HS 05/21/12 09/30/18 History zolpidem [Ambien] 10 mg PO HS #1 09/03/13 10/27/18 History cyanocobalamin (vitamin B-12) 1,000 mcg PO DAILY 12/21/14 10/27/18 History [Vitamin B-12] venlafaxine 300 mg PO HS #0 11/27/15 10/27/18 Rx clonazepam 0.5 mg PO 04/16/17 09/30/18 History lancets #400 ea 08/14/17 09/30/18 Rx silver sulfadiazine 20 gm TOPICAL BID #1 bottle 10/31/17 10/27/18 Rx diclofenac sodium 1 % topical gel 4 gm TP QID #400 gm 12/11/17 10/27/18 Rx prazosin 1 mg capsule 2 mg PO HS cap 12/11/17 10/27/18 History wheelchair #1 each 12/26/17 09/30/18 Rx 30G Safety Needle See Rx Instructions .ROUTE 01/14/18 09/30/18 Rx .COMPLEX #200 unit MDD 6 pen needle, diabetic, safety 30 #200 each 01/14/18 09/30/18 Rx gauge x 3/16 naloxone 4 mg/actuation nasal spray 1 spray FRANCO ONCE PRN #2 each 01/15/18 10/27/18 Rx simvastatin 20 mg tablet 20 mg PO HS #90 tab 03/19/18 10/27/18 Rx Blood Glucose Test #400 strip 04/15/18 09/30/18 Rx aripiprazole 30 mg tablet 30 mg PO DAILY 04/15/18 10/27/18 History lamotrigine 300 mg tablet,extended 300 mg PO DAILY 04/15/18 10/27/18 History release 24 hr glucagon (human recombinant) 1 mg 1 mg SUBCUT ONCE #1 each 04/19/18 10/27/18 Rx solution for injection pregabalin 150 mg capsule 150 mg PO TID #270 cap 04/23/18 10/27/18 Rx sub-q insulin device, 40 unit #30 each 06/05/18 09/30/18 Rx potassium chloride 20 mEq 20 meq PO BID #180 tab 06/11/18 10/27/18 Rx tablet,extended release propranolol 10 mg tablet 10 mg PO TID #270 tab-cap 07/08/18 10/27/18 Rx hydroxyzine pamoate 50 mg capsule 50 mg PO TID #90 cap 07/15/18 10/27/18 Rx Humulin R U-500 (Conc) Kwikpen 200 unit SUBCUT TID 08/18/18 10/27/18 History finasteride 5 mg PO DAILY #30 tab 08/20/18 10/27/18 Rx tamsulosin 0.4 mg PO DAILY@1730 #30 cap 08/20/18 10/27/18 Rx aspirin [Aspir-81] 81 mg PO DAILY 09/02/18 10/27/18 History ciprofloxacin HCl 750 mg tablet 750 mg PO DAILY tab 09/30/18 10/27/18 History oxycodone 10 mg tablet 10 mg PO TID PRN 28 Days #84 tab 09/30/18 10/27/18 Rx MDD 3 tablets/day Allergies Allergy/AdvReac Type Severity Reaction Status Date / Time quetiapine fumarate Allergy Severe suicidal Verified 09/30/18 13:32 [From Seroquel] vancomycin Allergy Severe Anaphylaxsi Verified 09/30/18 13:32 s venom-honey bee Allergy Severe anaphylacti Verified 09/30/18 13:32 [bee venom (honey bee)] c carbamazepine AdvReac Severe psychosis,s Verified 09/30/18 13:32 uicidal fluoxetine HCl [From Symbyax] AdvReac Severe jaundice Verified 09/30/18 13:32 olanzapine [From Symbyax] AdvReac Severe jaundice Verified 09/30/18 13:32 Exam Narrative Exam Narrative: 114/69, 113, 14, (no temp recorded); HEENT unremarkable; neck supple; lungs clear; heart tachy/regular, distant; abdomen soft, minimal lower abdomeinal tenderness, extr s/p left AKA, chrronic stasis and superficial ulcerations right yee Results Labs : 10/27/18 12:50 10/27/18 12:59 Laboratory Results - last 24 hr 10/27/18 10/27/18 10/27/18 12:50 12:50 12:50 WBC 7.38 RBC 4.84 Hgb 13.0 L Hct 38.5 L MCV 79.5 L MCH 26.9 L MCHC 33.8 RDW 14.3 H Plt Count 206 MPV 9.2 Immature Gran % 0.1 Neutrophils % 82.8 Lymphocytes % 7.2 Monocytes % 7.5 Eosinophils % 1.9 Basophils % 0.5 Absolute Neutrophils 6.11 Absolute Lymphocytes 0.53 L Absolute Monocytes 0.55 Absolute Eosinophils 0.14 Absolute Basophils 0.04 VBG pH 7.42 VBG pCO2 37 VBG pO2 76 H VBG HCO3 24 VBG Total CO2 22 VBG O2 Saturation 95 H VBG Base Excess -0.5 Sodium Potassium Chloride Carbon Dioxide Anion Gap BUN Creatinine Estimated GFR/1.73 m2 Glucose Lactate Calcium Magnesium 1.7 L Total Bilirubin AST ALT Alkaline Phosphatase Total Protein Albumin Urine Color Urine Clarity Urine pH Ur Specific [place] Urine Protein Urine Ketones Urine Blood Urine Nitrite Urine Bilirubin Urine Urobilinogen Ur Leukocyte Esterase Urine RBC Urine WBC Ur Epithelial Cells Urine Crystals Urine Bacteria Urine Mucus Ur Culture Indicated? Urine Glucose 10/27/18 10/27/18 10/27/18 12:52 12:59 13:55 WBC RBC Hgb Hct MCV MCH MCHC RDW Plt Count MPV Immature Gran % Neutrophils % Lymphocytes % Monocytes % Eosinophils % Basophils % Absolute Neutrophils Absolute Lymphocytes Absolute Monocytes Absolute Eosinophils Absolute Basophils VBG pH VBG pCO2 VBG pO2 VBG HCO3 VBG Total CO2 VBG O2 Saturation VBG Base Excess Sodium 135 L Potassium 3.9 Chloride 98 Carbon Dioxide 22.9 Anion Gap 14.1 H BUN 13 Creatinine 0.98 Estimated GFR/1.73 m2 >= 60.00 Glucose 424 H Lactate 1.9 H Calcium 9.0 Magnesium Total Bilirubin 0.8 AST 17 ALT 31 Alkaline Phosphatase 154 H Total Protein 8.2 Albumin 3.6 Urine Color Yellow Urine Clarity Clear Urine pH 5.5 Ur Specific [place] <= 1.005 Urine Protein Negative Urine Ketones 80 H Urine Blood Moderate H Urine Nitrite Positive H Urine Bilirubin Negative Urine Urobilinogen 0.2 Ur Leukocyte Esterase Small H Urine RBC Not Applicable Urine WBC >50 Ur Epithelial Cells Not Applicable Urine Crystals Not Applicable Urine Bacteria Not Applicable Urine Mucus Not Applicable Ur Culture Indicated? Yes Urine Glucose 500 H Last Vital Signs Temp 36.8 C 10/27/18 12:49 Pulse 113 H 10/27/18 17:46 Resp 28 H 10/27/18 17:32 BP 149/69 H 10/27/18 17:46 Pulse Ox 96 10/27/18 17:46
[2018-10-27] MEDS: Lactated Ringers 1,000 ML 200 ML IV (21:04)
[2018-10-27] MEDS: Prazosin 1 MG CAP 2 MG PO (23:02)
[2018-10-27] MEDS: Simvastatin 20 MG TAB PO (23:03)
[2018-10-27] MEDS: Zolpidem 10 MG TAB PO (23:03)
[2018-10-27] MEDS: Potassium Chloride 20 MEQ TABCR PO (23:19)
[2018-10-27] MEDS: hydrOXYzine PAMOATE 25 MG CAP 50 MG PO (23:20)
[2018-10-27] MEDS: Pregabalin 50 MG CAP 150 MG PO (23:20)
[2018-10-27] MEDS: Venlafaxine 150 MG CAPCR 300 MG PO (23:24)
[2018-10-27] MEDS: Propranolol 10 MG TAB PO (23:24)
[2018-10-28 00:15] VITALS: TEMP 37.2
[2018-10-28] MEDS: Lactated Ringers 1,000 ML 200 ML IV ×2 (04:19→08:58)
[2018-10-28] MEDS: Acetaminophen 325 MG TAB 650 MG PO ×2 (06:10→18:41)
[2018-10-28 07:35] VITALS: BP 155/76; PULSE 103; RESP 20; TEMP 36.7; O2SAT 93
[2018-10-28] MEDS: Insulin Aspart 300 UNITS/3 ML PEN SC ×3 (07:41→17:10)
[2018-10-28] MEDS: Cyanocobalamin 500 MCG TAB 1000 MCG PO (07:42)
[2018-10-28] MEDS: Aspirin E.C. 81 MG TABEC PO (07:42)
[2018-10-28] MEDS: Pregabalin 50 MG CAP 150 MG PO ×3 (07:43→20:51)
[2018-10-28] MEDS: Potassium Chloride 20 MEQ TABCR PO ×2 (07:43→20:53)
[2018-10-28] MEDS: Finasteride 5 MG TAB PO (07:43)
[2018-10-28] MEDS: ARIPiprazole 15 MG TAB 30 MG PO (08:52)
[2018-10-28] MEDS: Propranolol 10 MG TAB PO ×3 (08:52→20:52)
[2018-10-28] MEDS: hydrOXYzine PAMOATE 25 MG CAP 50 MG PO ×3 (08:52→20:53)
[2018-10-28] MEDS: oxyCODONE 10 MG TAB PO ×3 (08:57→20:53)
--- NOTE | 2018-10-28 10:55 | PGE_ITS ---
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 He was started on ceftriaxone. Fever has downtrended. he reprots symptoms have somewhat improved today. He reports was supposed to be on flomax for his chronic urinary retention but has not been taking it. Exam Narrative Exam Narrative: GEN: obese, non toxic HEENT: NCAT, MMM CV: tachycardic, regular, nl s1 and s2 ABD: soft, NT, ND : no suprabupic tenderness BACK: no CVA tenderness SKIN: erythema with overlying white scale over the penis and scrotum EXT: symmetrical, no edema Objective Objective Clinical Data: Abnormal lab results 10/27/18 10/27/18 10/27/18 Range/Units 12:50 12:50 12:50 Hgb 13.0 L (13.5-17.5) g/dL Hct 38.5 L (40.0-50.0) % MCV 79.5 L (80-95) fL MCH 26.9 L (27.0-33.0) pg RDW 14.3 H (11.8-14.1) % Absolute Lymphocytes 0.53 L (1.2-3.4) k/cumm VBG pO2 76 H (28-44) mm/Hg VBG O2 Saturation 95 H (70-80) % Sodium (136-145) mmol/L Anion Gap (3-11) mmol/L Glucose (70-100) mg/dL Lactate (0.6-1.4) mmol/L Magnesium 1.7 L (1.8-2.4) mg/dL Alkaline Phosphatase (46-116) U/L Urine Ketones (Negative) mg/dL Urine Blood (Negative) Urine Nitrite (Negative) Ur Leukocyte Esterase (Negative) Urine Glucose (Negative) mg/dL 10/27/18 10/27/18 10/27/18 Range/Units 12:52 12:59 13:55 Hgb (13.5-17.5) g/dL Hct (40.0-50.0) % MCV (80-95) fL MCH (27.0-33.0) pg RDW (11.8-14.1) % Absolute Lymphocytes (1.2-3.4) k/cumm VBG pO2 (28-44) mm/Hg VBG O2 Saturation (70-80) % Sodium 135 L (136-145) mmol/L Anion Gap 14.1 H (3-11) mmol/L Glucose 424 H (70-100) mg/dL Lactate 1.9 H (0.6-1.4) mmol/L Magnesium (1.8-2.4) mg/dL Alkaline Phosphatase 154 H (46-116) U/L Urine Ketones 80 H (Negative) mg/dL Urine Blood Moderate H (Negative) Urine Nitrite Positive H (Negative) Ur Leukocyte Esterase Small H (Negative) Urine Glucose 500 H (Negative) mg/dL Vital Signs Temperature 36.7 C 10/28/18 07:35 Temperature Source Tympanic 10/28/18 07:35 Pulse 103 H 10/28/18 07:35 Pulse Rhythm Regular 10/28/18 09:22 Pulse 124 H 10/27/18 20:31 Respiratory Rate 20 10/28/18 07:35 Respiratory Effort Non-Labored 10/28/18 09:22 Respiratory Depth Normal 10/28/18 09:22 Respiratory Pattern Normal 10/28/18 09:22 Blood Pressure 155/76 H 10/28/18 07:35 Blood Pressure Mean 97 10/27/18 20:31 Pulse Oximetry 93 L 10/28/18 07:35 Oxygen Delivery Method Room Air 10/28/18 07:35 Oxygen Flow Rate 0 10/28/18 07:35 Pain Level 6 10/28/18 08:57 Intake & Output 10/27/18 10/27/18 10/28/18 11:59 23:59 11:59 Intake Total 2049 2290 / 2290 Output Total 425 / 425 2830 / 2830 Balance 1625 / 1625 -540 / -540 Weight 158.757 kg Intake: IV 2049 1930 / 193 Oral 360 / 360 Output: Urine 425 / 425 2830 / 2830 Other: Urine Color Yellow Pale Yellow Straw Urine Appearance Clear Clear Urine Odor Normal Stool Size Copious Stool Characteristics Soft Brown Voiding Methods Urinal Urinal Laboratory Results WBC 7.38 k/cumm (4.4-10.8) 10/27/18 12:50 RBC 4.84 m/cumm (4.50-6.00) 10/27/18 12:50 Hgb 13.0 g/dL (13.5-17.5) L 10/27/18 12:50 Hct 38.5 % (40.0-50.0) L 10/27/18 12:50 MCV 79.5 fL (80-95) L 10/27/18 12:50 MCH 26.9 pg (27.0-33.0) L 10/27/18 12:50 MCHC 33.8 g/dL (32.0-36.0) 10/27/18 12:50 RDW 14.3 % (11.8-14.1) H 10/27/18 12:50 Plt Count 206 x1000/uL (130-400) 10/27/18 12:50 MPV 9.2 fL (8.0-11.0) 10/27/18 12:50 Immature Gran % 0.1 10/27/18 12:50 82.8 10/27/18 12:50 7.2 10/27/18 12:50 7.5 10/27/18 12:50 1.9 10/27/18 12:50 0.5 10/27/18 12:50 Absolute Neutrophils 6.11 k/cumm (1.2-6.7) 10/27/18 12:50 Absolute Lymphocytes 0.53 k/cumm (1.2-3.4) L 10/27/18 12:50 Absolute Monocytes 0.55 k/cumm (0.11-0.7) 10/27/18 12:50 Absolute Eosinophils 0.14 k/cumm (0.0-0.7) 10/27/18 12:50 Absolute Basophils 0.04 k/cumm (0.0-0.2) 10/27/18 12:50 VBG pH 7.42 (7.32-7.43) 10/27/18 12:50 VBG pCO2 37 mm/Hg (34-47) 10/27/18 12:50 VBG pO2 76 mm/Hg (28-44) H 10/27/18 12:50 VBG HCO3 24 mmol/L (22-28) 10/27/18 12:50 VBG Total CO2 22 mmol/L (22-29) 10/27/18 12:50 VBG O2 Saturation 95 % (70-80) H 10/27/18 12:50 VBG Base Excess -0.5 mmol/L (-3-3) 10/27/18 12:50 Sodium 135 mmol/L (136-145) L 10/27/18 12:59 Potassium 3.9 mmol/L (3.5-5.1) 10/27/18 12:59 Chloride 98 mmol/L (98-107) 10/27/18 12:59 Carbon Dioxide 22.9 mmol/L (21.0-32.0) 10/27/18 12:59 14.1 mmol/L (3-11) H 10/27/18 12:59 BUN 13 mg/dL (7-18) 10/27/18 12:59 0.98 mg/dL (0.70-1.30) 10/27/18 12:59 >= 60.00 (mL/min/1.73m2) 10/27/18 12:59 Glucose 424 mg/dL (70-100) H 10/27/18 12:59 1.9 mmol/L (0.6-1.4) H 10/27/18 12:52 Calcium 9.0 mg/dL (8.5-10.1) 10/27/18 12:59 Magnesium 1.7 mg/dL (1.8-2.4) L 10/27/18 12:50 0.8 mg/dL (0.2-1.0) 10/27/18 12:59 AST 17 U/L (15-37) 10/27/18 12:59 ALT 31 U/L (12-78) 10/27/18 12:59 154 U/L (46-116) H 10/27/18 12:59 8.2 g/dL (6.4-8.2) 10/27/18 12:59 3.6 g/dL (3.4-5.0) 10/27/18 12:59 Yellow (Yellow) 10/27/18 13:55 Clear (Clear) 10/27/18 13:55 5.5 (5-8) 10/27/18 13:55 Ur Specific [place] <= 1.005 (1.005-1.025) 10/27/18 13:55 Negative mg/dL (Negative) 10/27/18 13:55 80 mg/dL (Negative) H 10/27/18 13:55 Moderate (Negative) H 10/27/18 13:55 Positive (Negative) H 10/27/18 13:55 Negative (Negative) 10/27/18 13:55 0.2 EU/dL (Up TO 0.2) 10/27/18 13:55 Ur Leukocyte Esterase Small (Negative) H 10/27/18 13:55 Not Applicable 10/27/18 13:55 >50 HPF (0-5) 10/27/18 13:55 Ur Epithelial Cells Not Applicable 10/27/18 13:55 Not Applicable 10/27/18 13:55 Not Applicable 10/27/18 13:55 Not Applicable 10/27/18 13:55 Ur Culture Indicated? Yes 10/27/18 13:55 500 mg/dL (Negative) H 10/27/18 13:55
[2018-10-28] MEDS: Normal Saline Flush 10 ML SYR IVP (13:18)
[2018-10-28] MEDS: Insulin Aspart 300 UNITS/3 ML PEN 10 UNITS SC (13:19)
[2018-10-28] MEDS: MAGNESIUM SULFATE 2 GM/50 ML BAG IVPB (13:20)
[2018-10-28] MEDS: Ketoconazole 2% CREAM 15 GM TUBE TP (13:28)
--- NOTE | 2018-10-28 16:12 | CHAPLAIN ---
Ricardo and I know each other from his previous admissions. Since he was here last, he moved to [place], [place]. 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 Ricardo said he believes God intervened to help her find the job and then receive a promotion right away. They have also found a congregational there that they feel very comfortable with. Ricardo's mother visited this morning and will be back this afternoon. I offered a prayer with Ricardo.
[2018-10-28 16:28] VITALS: BP 143/81; PULSE 94; RESP 19; TEMP 36.4; O2SAT 97
[2018-10-28] MEDS: cefTRIAXone 1,000 MG in Normal Saline 50 ML 100 MG IVPB (17:10)
[2018-10-28] MEDS: Tamsulosin 0.4 MG CAPCR PO (17:10)
[2018-10-28] MEDS: DICLOFENAC 1% GEL 100 GM TUBE TP (17:11)
--- NOTE | 2018-10-28 18:24 | INITIAL_ITS ---
- If Service Date Differs Date of service: 10/28/18 Time of Service: 18:24 Care Management Initial Assess REASON FOR HOSPITALIZATION:: UTI PAST MEDICAL HISTORY/PAST SURGICAL HISTORY:: Medical History . Back pain. Benign hypertension. Bipolar disorder. Depression. Diabetes mellitus, type 2. Erectile dysfunction. GERD (gastroesophageal reflux disease). History of nephrolithiasis. Hyperlipidemia. 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 Knee pain, left. KAMARI (obstructive sleep apnea). Osteoarthritis. Recurrent ventral hernia. Right shoulder pain. Staphylococcal arthritis, left knee. Surgical History: Amputation (12/23/16). Arthroplasty of knee (09/28/12). excision bone spurs PREVIOUS FUNCTIONAL STATUS/SOCIAL/FAMILY SUPPORTS:: Ricardo lives with his in an apartment in his mother's home in [place], [place]. He is wheelchair bound and has been disabled for a long time. Ricardo is able to self transfer from bed to chair using a walker. CURRENT FUNCTIONAL STATUS:: Ricardo was sitting up in bed talking with his mother when CM met with him. He was pleasant and friendly and readily engaged in conversation. He stated that he loves [facility] and travels a long distance just to be in this hospital. Ricardo stated he is feeling much better and anticipates being discharged home tomorrow. ADVANCE DIRECTIVES:: On file at [facility]. Rosina [facility] [phone] Has patient been provided with information about the portal?: Yes Did the patient sign up for the portal?: No CODE STATUS:: Full Code INSURANCE COVERAGE / FINANCIAL ISSUES:: Medicare. Financial Assist 100 CURRENT HOME/COMMUNITY SERVICES/EQUIPMENT:: Ricardo currently receives services of nursing 3 timesa a week for Heather boot changes PRIMARY CARE PHYSICIAN:: Sha Segundo MD. [place], [place] PATIENT/FAMILY EDUCATION NEEDS:: Discharge plan, limitations, follow up care, Ask Me Three TRANSPORTATION:: via private vehicle with mother when ready PLAN:: Ricardo is receiving antibiotics to treat his UTI. He will be discharged home with a resumption of nursing services. CM will continue to support patient, family and discharge planning procdess.
[2018-10-28] MEDS: lamoTRIgine 100 MG TAB 300 MG PO (20:52)
[2018-10-28 21:33] VITALS: BP 152/77; PULSE 102; RESP 20; TEMP 38; O2SAT 94
[2018-10-28] MEDS: Prazosin 1 MG CAP 2 MG PO (23:27)
[2018-10-28] MEDS: Insulin Glargine 300 UNITS/3 ML PEN 20 UNITS SC (23:27)
[2018-10-28] MEDS: Zolpidem 10 MG TAB PO (23:28)
[2018-10-28] MEDS: Simvastatin 20 MG TAB PO (23:28)
[2018-10-28] MEDS: Venlafaxine 150 MG CAPCR 300 MG PO (23:28)
[2018-10-28 23:36] VITALS: BP 141/81; PULSE 94; RESP 16; TEMP 37.1; O2SAT 94
[2018-10-29 04:22] VITALS: TEMP 37.5
[2018-10-29 07:30] VITALS: BP 149/79; PULSE 94; RESP 20; TEMP 36.7; O2SAT 95
[2018-10-29] MEDS: ARIPiprazole 15 MG TAB 30 MG PO (08:26)
[2018-10-29] MEDS: Cyanocobalamin 500 MCG TAB 1000 MCG PO (08:26)
[2018-10-29] MEDS: Finasteride 5 MG TAB PO (08:26)
[2018-10-29] MEDS: hydrOXYzine PAMOATE 25 MG CAP 50 MG PO ×2 (08:26→13:30)
[2018-10-29] MEDS: Aspirin E.C. 81 MG TABEC PO (08:27)
[2018-10-29] MEDS: Pregabalin 50 MG CAP 150 MG PO ×2 (08:27→13:30)
[2018-10-29] MEDS: Ketoconazole 2% CREAM 15 GM TUBE TP (08:27)
[2018-10-29] MEDS: Propranolol 10 MG TAB PO ×2 (08:27→13:30)
[2018-10-29] MEDS: Potassium Chloride 20 MEQ TABCR PO (08:27)
[2018-10-29] MEDS: oxyCODONE 10 MG TAB PO ×2 (08:39→13:30)
[2018-10-29 10:57] LABS: Abs Immature Grans 0.01 k/cumm (0.0-0.09); Absolute Basophil Count 0.03 k/cumm (0.0-0.2); Absolute Eosinophil Count 0.14 k/cumm (0.0-0.7); Absolute Lymphocyte Count 1.07 k/cumm (1.2-3.4); Absolute Monocyte Count 0.63 k/cumm (0.11-0.7); Absolute Neutrophil Count 2.93 k/cumm (1.2-6.7); Basophils % 0.6; Eosinophils % 2.9; HCT 38.2 % (40.0-50.0); HGB 12.6 g/dL (13.5-17.5); Immature Grans % 0.2; Lymphocytes % 22.2; Mean Corpuscular Hemoglobin 26.4 pg (27.0-33.0); Mean Corpuscular Volume 80.1 fL (80-95); Mean Platelet Volume 8.9 fL (8.0-11.0); Monocytes % 13.1; Platelet Count 196 x1000/uL (130-400); RBC 4.77 m/cumm (4.50-6.00); RBC Distribution Width 14.9 % (11.8-14.1); White Blood Cell Count 4.81 k/cumm (4.4-10.8)
[2018-10-29 11:05] LABS: BUN 14 mg/dL (7-18); CREATININE 0.86 mg/dL (0.70-1.30); Calcium 8.4 mg/dL (8.5-10.1); Chloride 103 mmol/L (98-107); Glucose 255 mg/dL (70-100); Magnesium 1.7 mg/dL (1.8-2.4); Potassium 3.8 mmol/L (3.5-5.1); Sodium 138 mmol/L (136-145)
[2018-10-29] MEDS: Insulin Aspart 300 UNITS/3 ML PEN SC (11:44)
[2018-10-29 13:31] VITALS: BP 127/74
[2018-10-29] MEDS: cefTRIAXone 1,000 MG in Normal Saline 50 ML 100 MG IVPB (15:42)
[2018-10-29 15:43] VITALS: BP 149/80; PULSE 82; RESP 20; TEMP 36.4; O2SAT 94
--- NOTE | 2018-10-29 16:17 | PDOC.CMPRO ---
- If Service Date Differs Date of service: 10/29/18 Time of Service: 16:17 Care Management Progress Note S/O: Ricardo was sitting up in a chair when CM visited. His was with him. He states he is feeling much better and plans to go home today.He states he does not anticipate needing any new services. He currently received nursing 3 times per week in [place] where he lives. A: Ricardo is a 48 year old man admitted to [facility] on 10/27/18 with a UTI. P: Ricardo is being treated with IV AB for his UTI. He will likely be discharged soon with no new services. He will transport with his family via private vehicle and will follow up with his PCP and discharge plan of care.
--- NOTE | 2018-10-29 16:40 | W.PM.DS.N ---
Date of service: 10/29/18 Time of Service: 16:40 DS: Diagnosis Discharge Diagnosis (1) UTI (urinary tract infection): Status: Acute Asessment and Plan: Complicated UTI, Due to Serratia marcescens, present on admission (2) Hematuria: Status: Resolved (3) Urinary retention: Status: Chronic (4) Hydronephrosis: Status: Acute Asessment and Plan: Mild, L-sided (5) Chronic pain: Status: Chronic (6) Type 2 diabetes mellitus with complication, with long-term current use of insulin: Status: Chronic Asessment and Plan: poorly controlled (7) Gastroesophageal reflux disease: Status: Acute (8) Hypomagnesemia: Status: Acute Discharge Plan Disposition Patient Disposition: HOME W/HOME HEALTH SERVICE Condition: Stable Discharge Details Chief Complaint: Diabetes Clinical Impression: Pyelonephritis Reason For Visit: UTI Admit Date/Time: 10/27/18 19:26 Admit Provider: Memo Lange Attending Provider: Memo Lange Primary Care Provider: Mariluz Oliveira ED Provider: Rashad Colon Hospital Course Hospital Course: Mr Lozano is a 48 year old male with PMHx of poorly controlled IDDM2, urinary retention, prior UTI's (recently treated at [facility] for a Serratia UTI), bipolar d/o in remission, admitted to [facility] on 10/27/18 with complicated UTI, mild L hydronephrosis and urinary retention in addition to hyperglycemia without evidence of DKA. He was initiated on empiric ceftriaxone. His flomax, which he was not taking because he ran out of refills, was resumed. He had negative blood cultures. His urine C&S again grew Serratia Marcescens, with the same sensitivities he had in [place]. He was evaluated by Dr Vega of urology. It is imperative that the patient take his flomax in order to maximize his chances of curing his UTI. It is unclear whether or not the patient ever fully resolved his prior UTI or if this is a recurrence. He will be discharged home today with a 2 week course of levofloxacin, instructions to repeat UA/C&S in 2 weeks, and outpatient follow up with Dr Vega. He is medically stable for discharge today with home health. Home health is asked to collect UA and urine C&S in 2 weeks and send results to Dr Vega. Care for patient as well as preparation of this discharge summary took 40 minutes on the day of discharge. Home Meds and New Rx's Prescriptions: New levofloxacin 500 mg tablet 500 mg PO DAILY Qty: 14 RF: 0 Continued diclofenac sodium 1 % gel 4 gm TP QID Qty: 400 RF: 3 30G Safety Needle See Rx Instructions .ROUTE .COMPLEX MDD 6 Qty: 200 RF: 6 (DME) pen needle, diabetic, safety 30 gauge x 3/16 needle See Dose Instructions .ROUTE .MEDSUPPLY Qty: 200 RF: 6 (DME) wheelchair device See Dose Instructions .ROUTE .MEDSUPPLY Qty: 1 RF: 0 naloxone 4 mg/actuation spray,non-aerosol 1 spray FRANCO ONCE PRN (Reason: opioid overdose) Qty: 2 RF: 0 aripiprazole [Abilify] 30 mg tablet 30 mg PO DAILY RF: 0 lamotrigine [Lamictal XR] 300 mg tablet extended release 24hr 300 mg PO DAILY RF: 0 (DME) Blood Glucose Test strip 1 ea Miscellaneous TID & PRN Qty: 400 RF: 12 aspirin [Aspir-81] 81 mg Tablet,Delayed Release (Dr/Ec) 81 mg PO DAILY RF: 0 zolpidem [Ambien] 10 MG tablet 10 mg PO HS Qty: 1 RF: 0 cyanocobalamin (vitamin B-12) [Vitamin B-12] 1,000 MCG tablet 1,000 mcg PO DAILY RF: 0 clonazepam 0.5 MG tablet 0.5 mg PO RF: 0 (DME) lancets 1 EACH misc 1 ea Miscellaneous TID Qty: 400 RF: 12 silver sulfadiazine 20 GM cream 20 gm Topical BID Qty: 1 RF: 1 prazosin 1 mg capsule 2 mg PO HS RF: 0 simvastatin 20 mg tablet 20 mg PO HS Qty: 90 RF: 3 Glucagon Emergency Kit (human) 1 mg recon soln 1 mg subcut ONCE Qty: 1 RF: 1 Lyrica 150 mg capsule 150 mg PO TID Qty: 270 RF: 1 (DME) V-GO 40 device See Dose Instructions .ROUTE .MEDSUPPLY Qty: 30 RF: 0 potassium chloride 20 mEq tablet extended release 20 meq PO BID Qty: 180 RF: 1 propranolol 10 mg tablet 10 mg PO TID Qty: 270 RF: 3 hydroxyzine pamoate [Vistaril] 50 mg capsule 50 mg PO TID Qty: 90 RF: 0 oxycodone 10 mg tablet 10 mg PO TID MDD 3 tablets/day PRN (Reason: pain) 28 Days Qty: 84 RF: 0 cholecalciferol (vitamin D3) 1,000 UNITS tablet 2,000 unit PO HS RF: 0 venlafaxine 150 MG capsule,extended release 24hr 300 mg PO HS Qty: 0 RF: 0 Humulin R U-500 (Conc) Kwikpen 500 unit/mL (3 mL) insulin pen 200 unit subcut TID RF: 0 finasteride 5 mg Tablet 5 mg PO DAILY Qty: 30 RF: 0 tamsulosin 0.4 mg Capsule 0.4 mg PO DAILY@1730 Qty: 30 RF: 6 Discharge Instructions Instructions: Levofloxacin (By mouth), Tamsulosin (By mouth), Urinary Retention in Men (GEN), Urinary Tract Infection in Men (DC) Additional Instructions: Finish your antibiotics as prescribed. You must take flomax every day. Return to the hospital with any fever, bleeding, chest pain, or shortness of breath. Urine sample in 2 weeks - home health to collect. Care Plan Goals: Home with resumption of home health services. Referrals: Mariluz Oliveira [Primary Care Provider] - Jett Vega MD [ [facility] STAFF PHYSICIAN] - Activity:: Activity as Tolerated Equipment/Supplies:: No Equipment Needed Diet:: Carb Counting Discharge Orders Discharge Orders: Discharge Order (Routine); Ordered 10/29/18 Ordered By: Rachel Davey Other Ambulatory Orders: Urinalysis (Routine) Timeframe: 20181112 Location: Determined by Patient Ordered By: Rachel Davey Urine Culture (Routine) Timeframe: 20181112 Location: Determined by Patient Ordered By: Rachel Davey Exam Narrative Exam Narrative: General: very pleasant Obese male, sitting comfortably in a chair, A&Ox3, NAD HEENT: EOMI, MMM Heart: RRR, no m/r/g Lungs: CTAB GI: abdomen is soft, nontender, nondistended Extremities: no edema RLE, s/p LLE AKA DS: Data Vitals/I&O Vitals and I&O: Vital Signs Temperature 36.4 C L 10/29/18 15:43 Temperature Source Temporal Artery Scan 10/29/18 15:43 Pulse 82 10/29/18 15:43 Pulse Rhythm Regular 10/29/18 10:00 Pulse 124 H 10/27/18 20:31 Respiratory Rate 20 10/29/18 15:43 Respiratory Effort 10/29/18 10:00 Respiratory Depth Normal 10/29/18 10:00 Respiratory Pattern Normal 10/29/18 10:00 Blood Pressure 149/80 H 10/29/18 15:43 Blood Pressure Mean 97 10/27/18 20:31 Pulse Oximetry 94 L 10/29/18 15:43 Oxygen Delivery Method Room Air 10/29/18 15:43 Oxygen Flow Rate 0 10/29/18 15:43 Pain Level 0 10/29/18 15:43 Intake & Output 10/28/18 10/29/18 10/29/18 23:59 11:59 23:59 Intake Total 730 / 3020 690 / 690 Output Total 1600 / 4430 1100 / 1850 750 / 1850 Balance -870 / -1410 -410 / -1160 -750 / -1160 Intake: IV 730 / 2660 Oral 690 / 690 Output: Urine 1600 / 4430 1100 / 1850 750 / 1850 Other: Urine Color Yellow Yellow Yellow Urine Appearance Clear Clear Clear Urine Odor Normal None Voiding Methods Urinal Urinal Urinal Completed studies during hospitalization [Text1]: CT renal: Markedly distended urinary bladder. No urinary tract calculi are seen. Fatty infiltration of the liver and diverticulosis are also noted. Labs on day of discharge: Labs from last 24 hours 10/29/18 10/29/18 10:45 10:45 WBC 4.81 RBC 4.77 Hgb 12.6 L Hct 38.2 L MCV 80.1 MCH 26.4 L MCHC 33.0 RDW 14.9 H Plt Count 196 MPV 8.9 Immature Gran % 0.2 Neutrophils % 61.0 Lymphocytes % 22.2 Monocytes % 13.1 Eosinophils % 2.9 Basophils % 0.6 Absolute Neutrophils 2.93 Absolute Lymphocytes 1.07 L Absolute Monocytes 0.63 Absolute Eosinophils 0.14 Absolute Basophils 0.03 Sodium 138 Potassium 3.8 Chloride 103 Carbon Dioxide 25.0 Anion Gap 10.0 BUN 14 Creatinine 0.86 Estimated GFR/1.73 m2 >= 60.00 Glucose 255 H D Calcium 8.4 L Magnesium 1.7 L PFSH Medical History Back pain Benign hypertension Bipolar disorder Depression Diabetes mellitus, type 2 Erectile dysfunction GERD (gastroesophageal reflux disease) History of nephrolithiasis Hyperlipidemia 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 Social History Smoking/Tobacco Use Status: Never Alcohol Intake: never Drug use: Never Substance use type: does not use Household members: spouse Housing: house What is your relationship status?: Panel score (0-1 are the most socially isolated patients): 1 What type of physical activity do you participate in: none Working smoke detector in home: Yes Fire extinguisher in home: Yes Carbon monox detector in home: Yes Do you feel safe at home: Yes Do you feel safe in your relationship?: Yes
--- NOTE | 2018-10-29 16:43 | UCONE_ITS ---
Date of service: 10/29/18 Time of Service: 16:43 Assessment and Plan (1) UTI (urinary tract infection): Current visit: Yes Status: Acute In order in order to tell if tell if his infection has actually cleared or not, I have recommended a urine culture when he finishes his antibiotic. We can then discuss the results by phone and arrange followup studies. At a minimum, we will need to check a renal US while he is on Flomax to insure his hydronephrosis has improved/resolved. History of Present Illness Chief Complaint: Recurrent urinary tract infections Narrative: This is a 48-year-old gentleman who was seen previously when he was hospitalized with a Serratia urinary tract infection. He had incomplete bladder emptying and required a catheter at that time. We remove the catheter as an outpatient, but he did not keep his scheduled follow-up appointment. He had an encounter over in [facility] where by he was seen in the emergency room. He again grew Serratia from his urine. He had blood cultures taken that were negative. The sensitivity for the Serratia was exactly the same as during his initial encounter. The patient returned 48 hours ago with recurring symptoms of a urinary tract infection. His urine again is growing Serratia. The patient tells me he has never been checked after completing his antibiotics to make sure that his bacteria has cleared. He will occasionally get some left- sided flank pain. He tends to void better when he is on Flomax. When his prescription , he did seek out a new prescription. He has been off the medication for a month or so. 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 Social History Smoking/Tobacco Use Status: Never Alcohol Intake: never Drug use: Never Substance use type: does not use Household members: spouse Housing: house What is your relationship status?: Panel score (0-1 are the most socially isolated patients): 1 What type of physical activity do you participate in: none Working smoke detector in home: Yes Fire extinguisher in home: Yes Carbon monox detector in home: Yes Do you feel safe at home: Yes Do you feel safe in your relationship?: Yes Exam Narrative Exam Narrative: He does not appear septic or toxic at this time. His vital signs are documented elsewhere He is awake and alert I reviewed his CT scan on the PACS system. His bladder is quite distended and there is a very mild fullness to each of the renal pelvises His serum creatinine is normal His urine culture is again growing Serratia Results Last Vital Signs Temp 36.4 C L 10/29/18 15:43 Pulse 82 10/29/18 15:43 Resp 20 10/29/18 15:43 BP 149/80 H 10/29/18 15:43 Pulse Ox 94 L 10/29/18 15:43 Labs : 10/29/18 10:45 10/29/18 10:45 Laboratory Results - last 24 hr 10/29/18 10/29/18 10:45 10:45 WBC 4.81 RBC 4.77 Hgb 12.6 L Hct 38.2 L MCV 80.1 MCH 26.4 L MCHC 33.0 RDW 14.9 H Plt Count 196 MPV 8.9 Immature Gran % 0.2 Neutrophils % 61.0 Lymphocytes % 22.2 Monocytes % 13.1 Eosinophils % 2.9 Basophils % 0.6 Absolute Neutrophils 2.93 Absolute Lymphocytes 1.07 L Absolute Monocytes 0.63 Absolute Eosinophils 0.14 Absolute Basophils 0.03 Sodium 138 Potassium 3.8 Chloride 103 Carbon Dioxide 25.0 Anion Gap 10.0 BUN 14 Creatinine 0.86 Estimated GFR/1.73 m2 >= 60.00 Glucose 255 H D Calcium 8.4 L Magnesium 1.7 L
== END 2018-10-29 17:33 | disposition home health service (06) | DRG 690 ==
LOC: ER 10-28 01:16 → MS 10-28 01:17
PROVIDERS: Nurse Practitioner Family; Admitting Provider General Practice; Emergency Provider Student in an Organized Health Care Education/Training Program; PCP Nurse Practitioner Family; Visit Provider Internal Medicine
DX: N39.0 Urinary tract infection, site not specified (principal); B96.89 Other specified bacterial agents as the cause of diseases classified elsewhere; Z16.19 Resistance to other specified beta lactam antibiotics; Z16.29 Resistance to other single specified antibiotic; R31.29 Other microscopic hematuria; R33.9 Retention of urine, unspecified; N13.30 Unspecified hydronephrosis; G89.29 Other chronic pain; E11.65 Type 2 diabetes mellitus with hyperglycemia; Z79.4 Long term (current) use of insulin; K21.9 Gastro-esophageal reflux disease without esophagitis; E83.42 Hypomagnesemia; Z87.440 Personal history of urinary (tract) infections; T44.6X6A Underdosing of alpha-adrenoreceptor antagonists, initial encounter; Z91.128 Patient's intentional underdosing of medication regimen for other reason; I10 Essential (primary) hypertension; G47.33 Obstructive sleep apnea (adult) (pediatric)
CPT/HCPCS: 36415; 36416; 80048; 80053; 82805; 82962; 87077; 93005; 96361; 96365; 96375; 99221; 99222; 99232; 99239; 99285; 74176; 81003; 81015; 83605; 83735; 85025; 87086; 87186; 93010; J0696; J3490